=== PATIENT | male | born 1975 | race Caucasian/White ===

== ENCOUNTER 2021-05-03 11:00 | Outpatient (REF) | payer OTHER, SELFPAY ==
[2021-05-03 14:43] LABS: MANUAL DIFF FLAG NO
[2021-05-03 14:48] LABS: Basophils Absolute Auto 0.1 X10*3/uL (0.0-0.2); Eosinophils Absolute Auto 0.5 X10*3/uL (0.0-0.4); Eosinophils Percent Auto 4.2 % (0-4); Hematocrit 43.6 % (42-52); Hemoglobin 14.7 g/dl (14.0-18.0); Imm Gran Abs Auto 0.03 X10*3/uL (0.00-0.03); Imm Gran Pct Auto 0.2 % (0.0-0.4); Lymphocytes Absolute Auto 3.6 X10*3/uL (1.2-4.9); Lymphocytes Percent Auto 28.1 % (20-40); Mean Corpuscular HGB Conc 33.7 g/dl (31.0-36.0); Mean Corpuscular Hemoglobin 31.3 pg (27.0-33.0); Mean Platelet Volume 10.4 fL (9.4-12.4); Monocytes Absolute Auto 1.1 X10*3/uL (0.1-1.2); Monocytes Percent Auto 8.3 % (2-11); Neutrophils Absolute Auto 7.5 X10*3/uL (2.0-8.3); Neutrophils Percent Auto 58.2 % (45-73); Platelet Count 338 X10*3/uL (160-400); Red Blood Count 4.69 X10*6/uL (4.60-5.80); White Blood Count 12.8 X10*3/uL (4.8-10.8)
[2021-05-03 15:42] LABS: Glucose Urine UA NEG (NEG); Leukocyte Esterase Urine NEG (NEG); Nitrite Urine NEG (NEG); Urine Blood NEG (NEG); Urine Ketones NEG (NEG); Urine Protein NEG (NEG-TRACE)
[2021-05-03 15:43] LABS: Appearance Urine CLEAR; Color Urine YELLOW
[2021-05-03 15:50] LABS: Alanine Aminotransferase 17 U/L (0-40); Albumin Level 4.3 g/dL (3.5-5.0); Alkaline Phosphatase 63 U/L (39-117); Anion Gap 16 (12-20); Aspartate Amino Transferase 29 U/L (5-37); Bilirubin Total 0.8 mg/dL (0.0-1.0); Blood Urea Nitrogen 19 mg/dL (9-16); Calcium 9.5 mg/dL (8.4-10.2); Carbon Dioxide 23 mmol/L (22-29); Chloride 105 mmol/L (96-108); Cholesterol 288 mg/dL; Estimated Glomerular Filt Rate > 60; Glucose Random 80 mg/dL (60-115); HDL Cholesterol 51 mg/dL; LDL Cholesterol Calculated 205 mg/dl; Potassium 4.4 mmol/L (3.3-5.1); Sodium 140 mmol/L (135-145); Total Protein 7.1 g/dL (6.5-8.0); Triglycerides 160 mg/dL
[2021-05-03 16:09] LABS: PSA,Total (Free>4and<10) 0.27 ng/mL (0.00-4.00)
== END 2021-05-03 11:01 | disposition home or self-care (01) ==
LOC: HO.LNP 11:00
PROVIDERS: PCP Internal Medicine; Visit Provider Internal Medicine
DX: Z00.00 Encounter for general adult medical examination without abnormal findings (principal); Z12.5 Encounter for screening for malignant neoplasm of prostate; K62.5 Hemorrhage of anus and rectum; E78.00 Pure hypercholesterolemia, unspecified; F14.11 Cocaine abuse, in remission
CPT/HCPCS: 80053; 80061; 81003; 84153; 85025

== ENCOUNTER 2021-08-15 10:10 | Outpatient (REF) | payer OTHER, SELFPAY ==
[2021-08-15 11:30] LABS: Alanine Aminotransferase 12 U/L (0-40); Albumin Level 4.2 g/dL (3.5-5.0); Alkaline Phosphatase 68 U/L (39-117); Aspartate Amino Transferase 22 U/L (5-37); Bilirubin Direct 0.2 mg/dL (0.0-0.5); Bilirubin Total 0.5 mg/dL (0.0-1.0); Cholesterol 194 mg/dL; HDL Cholesterol 52 mg/dL; LDL Cholesterol Calculated 115 mg/dl; Total Protein 6.9 g/dL (6.5-8.0); Triglycerides 137 mg/dL
[2021-08-15 12:14] LABS: Reflex LDLD? No
== END 2021-08-15 10:11 | disposition home or self-care (01) ==
LOC: HO.LNP 10:10
PROVIDERS: Visit Provider Internal Medicine
DX: E78.00 Pure hypercholesterolemia, unspecified (principal)
CPT/HCPCS: 80061; 80076

== ENCOUNTER → 2021-09-27 10:23 | Outpatient (BNVA) | payer BC, OTHER, SELFPAY | PROVIDERS: PCP Internal Medicine; Visit Provider Nurse Practitioner | DX: Z01.818 Encounter for other preprocedural examination (principal); K64.9 Unspecified hemorrhoids | CPT/HCPCS: 99202 ==

== ENCOUNTER 2021-12-24 12:36 | Day surgery (SDC) | payer BC, OTHER, SELFPAY ==
[2021-12-19 09:50] VITALS: BMI 27.8
--- NOTE | 2021-12-23 11:05 | HO.ANESPROP2 ---
Documented by User: Richa Gonzalez NP 01/07/22 14:33 HPI - Anesthesia Eval Consult details Narrative: 46yo M for Colonoscopy [facility] Active Problems Active Problems: All Active Problems (Updated 09/27/21 @ 18:28 by MAYCOL Pandey) Smoker (Acute) High cholesterol (Acute) History of alcohol abuse (Acute) Colon cancer screening (Acute) Hemorrhoids (Acute) Past Medical History Medical History High cholesterol History of alcohol abuse Smoker Social History Social History Patient Tobacco Use Status: Current everyday Tobacco user Cigarettes Per Day: 10 Meds Allergies Allergy/AdvReac Type Severity Reaction Status Date / Time bee pollen [BEE STINGS] Allergy Unknown HIVES Verified 09/27/21 10:44 Home Medications Medication Instructions Recorded Confirmed Last Taken Type atorvastatin 20 mg tablet 20 mg PO DAILY 09/27/21 Unknown History disulfiram 250 mg tablet 250 mg PO DAILY 09/27/21 Unknown History Exam Exam Date and Time: December 23, 2021 1105 Height,Weight and Vital Signs: Height 5 ft 8.5 in Weight 84.368 kg Pertinent Lab Results Pertinent Lab Results: Laboratory Tests 05/03/21 05/03/21 08/15/21 07:45 07:45 08:00 WBC 12.8 H Hgb 14.7 Hct 43.6 Plt Count 338 Sodium 140 Potassium 4.4 Chloride 105 Carbon Dioxide 23 BUN 19 H Creatinine 1.07 Calcium 9.5 Total Bilirubin 0.5 Direct Bilirubin 0.2 AST 22 ALT 12 Alkaline Phosphatase 68 Total Protein 6.9 Albumin 4.2 Assessment and Plan Assessment Anesthesia Assessment: Chart Reviewed Documented by User: Hitesh Franks MD 03/12/22 16:22 [facility] Past Medical History Medical History High cholesterol History of alcohol abuse Smoker Family History Family history of problems with anesthesia: No Surgical History History of Problems with Anesthesia: No Social History Social History Patient Tobacco Use Status: Current everyday Tobacco user Cigarettes Per Day: 10 Meds Allergies Allergy/AdvReac Type Severity Reaction Status Date / Time bee pollen [BEE STINGS] Allergy Unknown HIVES Verified 09/27/21 10:44 Home Medications Medication Instructions Recorded Confirmed Last Taken Type atorvastatin 20 mg tablet 20 mg PO DAILY 09/27/21 Unknown History disulfiram 250 mg tablet 250 mg PO DAILY 09/27/21 Unknown History Exam Airway Mallampati Class: II TM Dist: >3cm Neck ROM: Full Loose/Missing/Broken Teeth: Yes (Rowena ) Heart: S1,S2 Lungs: b/l breath sounds Assessment and Plan Assessment Anesthesia Assessment: Anesthesia Plan Discussed Final Anesthetic Review Family History of Problems with Anesthesia: No History of Problems with Anesthesia: No NPO: Yes ASA Class: II Final Preanesthetic Review: Meds/Allgs Chart Reviewed, Consent Obtained/Reviewed and Anes Risks/Benef Reviewed Patient Risk: Intermediate Procedure Risk: Intermediate Anesthetic Plan Anesthetic Plan: MAC: Disposition: Standard PACU
--- NOTE | 2021-12-24 12:50 | MHC.SHP ---
Pre-Procedural Eval Section A Date of Service: 12/24/21 The patient is an INPATIENT: No The History & Physical has been completed within 30 days and I have reviewed it.: No Section B Chief Complaint: screening Details of Present Illness: Colon cancer screening, rectal bleeding Relevant Family History (Specify if Yes): No Relevant Social History: Tobacco Use Present Medications: see Short Stay Collaborative assessment Medical History: Significant History (High cholesterol, hx of rectal bleeding) History of Previous Operations: No relevant previous surgery Allergies: Allergies Allergy/AdvReac Type Severity Reaction Status Date / Time bee pollen [BEE STINGS] Allergy Unknown HIVES Verified 09/27/21 10:44 Review of Systems Sugical H&P ROS: Negative: Constitution, Cardiovascular and Respiratory and Yes, Specify: Gastrointestinal (rectal bleeding) Exam Surgical H&P Exam: Normal: Heart, Normal: Lungs, Normal: Extremities and Normal: Abdomen Plan Diagnosis/Plan: Unchanged I have reviewed the history and physical and performed a pertinent physical examination on my patient. No changes have occurred unless specified.
--- NOTE | 2021-12-24 12:52 | P.BOP_ITS ---
Brief Operative Note Date of Service: 12/24/21 Pre-op diagnosis: Colon cancer screening, rectal bleeding Post-op diagnosis: other (Diverticulosis, hemorrhoids) Procedure: COLONOSCOPY TILL CECUM Consent: Indications for the procedure and potential complications of bleeding, perforation, reaction to medications and missed diagnosis were discussed with the patient and informed consent was obtained. Instrument: Olympus PCF H 190 L variable stiffness pediatric colonoscope Monitoring: Vital signs and clinical assessment, intermittent blood pressure monitoring, continuous EKG monitoring, Pulse oximetry and Carbon Dioxide monitoring were done throughout the procedure. Colon withdrawl time was 25 minutes. Procedure: The patient was placed in the left lateral decubitis position and pre-procedure medications were administered. After a digital rectal examination of the ano-rectum, the video colonoscope was inserted into the rectum and advanced through the colon to the cecum. The colonoscope was slowly withdrawn in a retrograde panoramic fashion and the colon mucosa was carefully examined including a retroflexed view of the rectum. Findings and interventions are described below. Procedure Difficulty: Without difficulty Findings: Terminal Ileum: Not evaluated Cecum: Normal Ascending Colon: Normal Transverse Colon: Normal Descending Colon: Normal Sigmoid Colon: Moderate diverticulosis Rectum: Normal Ano-rectum: Moderate internal hemorrhoids - likely source for rectal bleeding. Colon preparation: Good after copious irrigation and fair in some areas of the colon due to undigested vegetable matter. Impression and Post Procedure Diagnosis: Colonoscopy Findings: No polyps were detected Moderate diverticulosis seen in the sigmoid colon Moderate hemorrhoids on retroflexed exam - likely source for rectal bleeding. Plan: Start Hydrocortisone cream and psyllium husk for hemorrhoids Patient has an appointment on 01/07/22 in the GI Clinic with María Grove FNP-BC. Repeat Colonoscopy in 5 years due to fair prep in some areas of the colon. Above findings were reviewed with the patient and Hemorrhoids and diverticulosis handouts were given in the discharge area Surgeon: Herminia Quintero MD Anesthesia: MAC (Dr Franks) Was an Machine Records Units Supervisor used for this Procedure?: Yes Machine Records Units Supervisor: Naomi Mendez Estimated blood loss (mL): 0 Pathology: none sent Condition: stable Disposition: PACU
[2021-12-24 12:58] VITALS: BP 113/68; PULSE 56; RESP 16; TEMP 36.6; O2SAT 100; BMI 28.4
--- NOTE | 2021-12-24 13:04 | W.PM.OPN ---
Operative Note Operative Note Date of Service: 12/24/21 Narrative: Pre-op diagnosis:?Colon cancer screening, rectal bleeding Post-op diagnosis:?other (Diverticulosis, hemorrhoids) Procedure:? COLONOSCOPY TILL CECUM Consent: Indications for the procedure and potential complications of bleeding, perforation, reaction to medications and missed diagnosis were discussed with the patient and informed consent was obtained. Instrument: Olympus PCF H 190 L variable stiffness pediatric colonoscope Monitoring: Vital signs and clinical assessment, intermittent blood pressure monitoring, continuous EKG monitoring, Pulse oximetry and Carbon Dioxide monitoring were done throughout the procedure. Colon withdrawl time was 25 minutes. Procedure: The patient was placed in the left lateral decubitis position and pre-procedure medications were administered. After a digital rectal examination of the ano-rectum, the video colonoscope was inserted into the rectum and advanced through the colon to the cecum. The colonoscope was slowly withdrawn in a retrograde panoramic fashion and the colon mucosa was carefully examined including a retroflexed view of the rectum. Findings and interventions are described below. Procedure Difficulty: Without difficulty Findings: Terminal Ileum: Not evaluated Cecum:? Normal Ascending Colon:? Normal Transverse Colon:? Normal Descending Colon:? Normal Sigmoid Colon:? Moderate diverticulosis Rectum:? Normal Ano-rectum:? Moderate internal hemorrhoids - likely source for rectal bleeding. Colon preparation:? Good after copious irrigation and fair in some areas of the colon due to undigested vegetable matter. Impression and Post Procedure Diagnosis: Colonoscopy Findings: No polyps were detected Moderate diverticulosis seen in the sigmoid colon Moderate hemorrhoids on retroflexed exam - likely source for rectal bleeding. Plan: Start Hydrocortisone cream and psyllium husk for hemorrhoids Patient has an appointment on 01/07/22 in the GI Clinic with ? María Grove, [employer]. Repeat Colonoscopy in 5 years due to fair prep in some areas of the colon. Above findings were reviewed with the patient and Hemorrhoids and diverticulosis handouts were given in the discharge area Surgeon:?Herminia Quintero MD Anesthesia:?MAC (Dr Franks) Was an Scouring Machine Tender used for this Procedure?:?Yes Scouring Machine Tender:?Naomi Mendez Estimated blood loss (mL):?0 Pathology:?none sent Condition:?stable Disposition:?PACU
[2021-12-24] MEDS: Lactated Ringers 1,000 ML 100 ML IVCONT (13:07)
[2021-12-24 14:56] VITALS: BP 109/68; PULSE 63; RESP 19; TEMP 36.6; O2SAT 100
[2021-12-24 15:11] VITALS: BP 118/77; PULSE 55; RESP 16; TEMP 36.6; O2SAT 100
== END 2021-12-24 15:32 | disposition home or self-care (01) ==
PROVIDERS: PCP Internal Medicine; Visit Provider Internal Medicine Gastroenterology
PROC: 0DJD8ZZ Inspection of Lower Intestinal Tract, Via Natural or Artificial Opening Endoscopic (ICD-10-PCS; CPT 45378; principal; 2021-12-24 13:00)
DX: Z12.11 Encounter for screening for malignant neoplasm of colon (principal); K57.30 Diverticulosis of large intestine without perforation or abscess without bleeding; K64.8 Other hemorrhoids; E78.00 Pure hypercholesterolemia, unspecified; Z79.899 Other long term (current) drug therapy; F17.210 Nicotine dependence, cigarettes, uncomplicated
CPT/HCPCS: 45378

== ENCOUNTER 2022-02-10 10:54 | Outpatient (REF) | payer BC, OTHER, SELFPAY ==
[2022-02-10 10:56] LABS: MANUAL DIFF FLAG NO
[2022-02-10 11:01] LABS: Appearance Urine CLEAR; Color Urine YELLOW; Glucose Urine UA NEG (NEG); Leukocyte Esterase Urine NEG (NEG); Nitrite Urine NEG (NEG); PH 5.5 (5.0-8.0); Specific Gravity - Urine 1.025 (1.005-1.025); Urine Blood NEG (NEG); Urine Ketones NEG (NEG); Urine Protein NEG (NEG-TRACE)
[2022-02-10 11:02] LABS: Basophils Absolute Auto 0.1 X10*3/uL (0.0-0.2); Basophils Percent Auto 0.9 % (0-2); Eosinophils Absolute Auto 0.5 X10*3/uL (0.0-0.4); Eosinophils Percent Auto 4.1 % (0-4); Hematocrit 45.1 % (42.0-52.0); Hemoglobin 14.7 g/dl (14.0-18.0); Imm Gran Abs Auto 0.03 X10*3/uL (0.00-0.03); Imm Gran Pct Auto 0.2 % (0.0-0.4); Lymphocytes Absolute Auto 3.9 X10*3/uL (1.2-4.9); Lymphocytes Percent Auto 30.6 % (20-40); Mean Corpuscular HGB Conc 32.6 g/dl (31.0-36.0); Mean Corpuscular Hemoglobin 29.9 pg (27.0-33.0); Mean Corpuscular Volume 91.7 fL (80.0-98.0); Mean Platelet Volume 10.6 fL (9.4-12.4); Monocytes Absolute Auto 0.9 X10*3/uL (0.1-1.2); Monocytes Percent Auto 6.9 % (2-11); Neutrophils Absolute Auto 7.3 x10*3/uL (2.0-8.3); Neutrophils Percent Auto 57.3 % (45-73); Platelet Count 362 X10*3/uL (160-400); Red Blood Count 4.92 X10*6/uL (4.60-5.80); Red Cell Distribution Width 13.2 % (11.0-16.0); White Blood Count 12.7 X10*3/uL (4.8-10.8)
[2022-02-10 11:19] LABS: Alanine Aminotransferase 11 U/L (0-40); Albumin Level 4.1 g/dL (3.5-5.0); Alkaline Phosphatase 52 U/L (39-117); Anion Gap 11 (12-20); Aspartate Amino Transferase 20 U/L (5-37); Bilirubin Total 0.3 mg/dL (0.0-1.0); Blood Urea Nitrogen 16 mg/dL (9-16); Calcium 9.3 mg/dL (8.4-10.2); Carbon Dioxide 26 mmol/L (22-29); Chloride 107 mmol/L (96-108); Cholesterol 272 mg/dL; Estimated Glomerular Filt Rate > 60; Glucose Fasting 96 mg/dL (60-99); HDL Cholesterol 58 mg/dL; LDL Cholesterol Calculated 179 mg/dl; Potassium 4.6 mmol/L (3.3-5.1); Sodium 139 mmol/L (135-145); Total Protein 7.2 g/dL (6.5-8.0); Triglycerides 179 mg/dL
[2022-02-10 11:28] LABS: PSA,Total (Free>4and<10) 0.42 ng/mL (0.00-4.00)
== END 2022-02-10 10:55 | disposition home or self-care (01) ==
LOC: HO.LNP 10:54
PROVIDERS: PCP Internal Medicine; Visit Provider Internal Medicine
DX: Z00.00 Encounter for general adult medical examination without abnormal findings (principal); Z12.5 Encounter for screening for malignant neoplasm of prostate; E78.00 Pure hypercholesterolemia, unspecified
CPT/HCPCS: 80053; 80061; 81003; 84153; 85025

== ENCOUNTER 2023-03-24 11:11 | Outpatient (REF) | payer BC, OTHER, SELFPAY ==
[2023-03-24 11:13] LABS: MANUAL DIFF FLAG NO
[2023-03-24 12:03] LABS: Appearance Urine Clear; Color Urine Yellow; Glucose Urine UA Negative (Negative); Leukocyte Esterase Urine Negative (Negative); Nitrite Urine Negative (Negative); Specific Gravity - Urine 1.015 (1.005-1.025); Urine Blood Negative (Negative); Urine Ketones Negative (Negative); Urine Protein Negative (Neg-Trace)
[2023-03-24 12:05] LABS: Bacteria Urine None Seen (None Seen); Hyaline Casts Urine 0-2 /LPF (0-2); RBC Urine 0-2 /HPF (0-2); Squamous Epithelial Cell Urine 0-2 /HPF (0-2); WBC Urine 0-5 /HPF (0-5)
[2023-03-24 12:08] LABS: Basophils Absolute Auto 0.2 X10*3/uL (0.0-0.2); Basophils Percent Auto 0.9 % (0-2); Eosinophils Absolute Auto 0.5 X10*3/uL (0.0-0.4); Eosinophils Percent Auto 3.4 % (0-4); Hematocrit 43.1 % (42.0-52.0); Hemoglobin 14.4 g/dl (14.0-18.0); Imm Gran Abs Auto 0.07 X10*3/uL (0.00-0.03); Imm Gran Pct Auto 0.4 % (0.0-0.4); Lymphocytes Absolute Auto 4.1 X10*3/uL (1.2-4.9); Lymphocytes Percent Auto 25.3 % (20-40); Mean Corpuscular HGB Conc 33.4 g/dl (31.0-36.0); Mean Corpuscular Hemoglobin 31.4 pg (27.0-33.0); Mean Corpuscular Volume 93.9 fL (80.0-98.0); Mean Platelet Volume 10.6 fL (9.4-12.4); Monocytes Absolute Auto 1.1 X10*3/uL (0.1-1.2); Monocytes Percent Auto 6.7 % (2-11); Neutrophils Absolute Auto 10.2 x10*3/uL (2.0-8.3); Neutrophils Percent Auto 63.3 % (45-73); Platelet Count 355 X10*3/uL (160-400); Red Blood Count 4.59 X10*6/uL (4.60-5.80); Red Cell Distribution Width 13.6 % (11.0-16.0); White Blood Count 16.1 X10*3/uL (4.8-10.8)
[2023-03-24 13:01] LABS: Alanine Aminotransferase 12 U/L (0-40); Albumin Level 4.2 g/dL (3.5-5.0); Alkaline Phosphatase 53 U/L (39-117); Anion Gap 14 (12-20); Aspartate Amino Transferase 19 U/L (5-37); Bilirubin Total 0.5 mg/dL (0.0-1.0); Blood Urea Nitrogen 15 mg/dL (9-16); Carbon Dioxide 24 mmol/L (22-29); Chloride 107 mmol/L (96-108); Cholesterol 278 mg/dL; Estimated Glomerular Filt Rate > 60; Glucose Fasting 96 mg/dL (60-99); HDL Cholesterol 68 mg/dL; LDL Cholesterol Calculated 193 mg/dl; PSA,Total (Free>4and<10) 0.42 ng/mL (0.00-4.00); Potassium 4.2 mmol/L (3.3-5.1); Sodium 141 mmol/L (135-145); Total Protein 6.9 g/dL (6.5-8.0); Triglycerides 89 mg/dL
== END 2023-03-24 11:12 | disposition home or self-care (01) ==
LOC: HO.LNP 11:11
PROVIDERS: Visit Provider Internal Medicine
DX: Z00.00 Encounter for general adult medical examination without abnormal findings (principal); Z12.5 Encounter for screening for malignant neoplasm of prostate; E78.00 Pure hypercholesterolemia, unspecified
CPT/HCPCS: 80053; 80061; 81001; 84153; 85025

== ENCOUNTER 2023-03-31 10:44 | Outpatient (REF) | payer BC, OTHER, SELFPAY ==
[2023-03-31 11:41] LABS: MANUAL DIFF FLAG NO
[2023-03-31 12:01] LABS: Basophils Absolute Auto 0.1 X10*3/uL (0.0-0.2); Eosinophils Absolute Auto 0.5 X10*3/uL (0.0-0.4); Eosinophils Percent Auto 4.2 % (0-4); Hematocrit 46.6 % (42.0-52.0); Imm Gran Abs Auto 0.06 X10*3/uL (0.00-0.03); Imm Gran Pct Auto 0.5 % (0.0-0.4); Lymphocytes Absolute Auto 3.2 X10*3/uL (1.2-4.9); Lymphocytes Percent Auto 26.1 % (20-40); Mean Corpuscular HGB Conc 34.3 g/dl (31.0-36.0); Mean Corpuscular Hemoglobin 31.6 pg (27.0-33.0); Mean Corpuscular Volume 91.9 fL (80.0-98.0); Mean Platelet Volume 10.5 fL (9.4-12.4); Monocytes Absolute Auto 0.9 X10*3/uL (0.1-1.2); Monocytes Percent Auto 7.4 % (2-11); Neutrophils Absolute Auto 7.5 x10*3/uL (2.0-8.3); Neutrophils Percent Auto 60.8 % (45-73); Platelet Count 345 X10*3/uL (160-400); Red Blood Count 5.07 X10*6/uL (4.60-5.80); Red Cell Distribution Width 13.3 % (11.0-16.0); White Blood Count 12.4 X10*3/uL (4.8-10.8)
== END 2023-03-31 10:45 | disposition home or self-care (01) ==
LOC: HO.LNP 10:44
PROVIDERS: Visit Provider Internal Medicine
DX: D72.829 Elevated white blood cell count, unspecified (principal)
CPT/HCPCS: 85025

== ENCOUNTER 2023-07-27 08:10 | Outpatient (REF) | payer BC, OTHER, SELFPAY ==
--- NOTE | ~2023-07-27 | XR_ITS ---
EXAMINATION: XR SHOULDER, RIGHT CLINICAL INFORMATION: Right shoulder pain COMPARISON: None available. TECHNIQUE: Three views of the right shoulder. FINDINGS: Advanced degenerative changes in the acromioclavicular joint with joint space narrowing and hypertrophic change. Glenohumeral alignment preserved. No abnormal soft tissue calcifications identified adjacent to the humeral head. XR/XR shoulder RT min 2V IMPRESSION: Advanced degenerative changes in the acromioclavicular joint. Additional imaging with CT scan or MRI should be considered for better visualization as these modalities are much more sensitive for detection of fracture or other underlying pathology.
== END 2023-07-27 08:11 | disposition home or self-care (01) ==
LOC: HO.HOSX 08:10
PROVIDERS: Visit Provider Orthopaedic Surgery
DX: M25.511 Pain in right shoulder (principal); M24.811 Other specific joint derangements of right shoulder, not elsewhere classified
CPT/HCPCS: 20610; 73030; 99202; J1100

== ENCOUNTER 2023-07-27 10:11 | Outpatient (AMB) | payer BC, OTHER, SELFPAY ==
--- NOTE | 2023-07-27 10:13 | A.OFFVIS_ITS ---
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 This is Workmans Comp injury, this was not a direct injury but he feels that his pain is secondary to repetitive motion. He has pain in the shoulder all the time, worse with activity. His job requires frequent lifting and reaching. He remains at work. 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 He feels this is secondary to his work activities and feels this is a workers comp injury. 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 He complains of pain in his shoulder constantly , and worse with activity. He says his pain worsens after a day at work, when he is winding down in the evening & at night the pain is severe and he has numbness, tingling, and throbbing radiating down his shoulder into his hand. He says his job requires frequent & repetitive motions which he finds very painful. He says his pain worsened ~3 months ago. He says he feels helpless and his symptoms prevent him from playing sports with his children. He says he has some paperwork to fax over to the clinic in regards to his claim. He used to be a member of the [employer] Medical History High cholesterol History of alcohol abuse Smoker Surgical History H/O colonoscopy Family History Sister Epilepsy Social History (Updated 07/27/23 @ 10:23 by Kelsey Singleton [facility]) Alcohol intake: former Patient Tobacco Use Status: Current everyday Tobacco user Cigarettes Per Day: 10 Substance Use Type: Marijuana Current occupational status: employed Current occupation: [employer] Review of Systems Const All systems reviewed & are unremarkable except as noted in HPI and below Physical Exam Vital Signs: BMI result Body Mass Index 27.7 Const General: no acute distress, alert and awake Orientation/consciousness: patient oriented x3 HEENT Head: Yes normocephalic and Yes atraumatic Eyes EOM: EOMs intact bilaterally Resp Effort & Inspection: normal respiratory effort and able to speak in complete sentences Cardio Jugular venous distension: no JVD Skin General skin exam: turgor normal Rashes: no rashes Neuro General: patient oriented x3 Extrem Other: Right Shoulder: 45/90/130/L5 + Lake's - empty can + H&N Psych Appearance: grossly normal Affect: normal affect Attitude: cooperative Results Reviewed Results Reviewed: 07/27/23 10:38 BUPivacaine MPF 0.25 % [Sensorcaine-MPF 0.25% 10 ML] 10 ml .ROUTE .STK-MED ONE Lidocaine HCl 2 % MPF [Xylocaine 2 % MPF] 5 ml .ROUTE .STK-MED ONE dexAMETHasone sod phosphate [Decadron] 4 mg .ROUTE .STK-MED ONE I personally reviewed relevant radiographs. Nl gh joint. ACJ OA Assessment & Plan Assessment & Plan (1) Internal derangement of right shoulder: Code(s): M24.811 - Other specific joint derangements of right shoulder, not elsewhere classified Plan: This is a 47 year old man with right shoulder pain, X3 months. His radiographs are unremarkable. He has pain with daily repetitive activities, which worsens when he is at rest following activity. He is claiming this as workers comp due to repetitive painful motions at work. I discussed his diagnosis and treatment options. I recommend NSAIDs, PT, and activity modification. I injected his right shoulder today, which he tolerated well, ordered PT, and he was given a note for work restricting him to no overhead work or lifting >20lbs. He will follow up in 6 weeks to discuss his RTW status. Orders: Orders XR shoulder RT min 2V Today M25.519 - Pain in unspecified shoulder Coding Level of Care Code New Pt Level 4 (98764) Diagnoses Internal derangement of right shoulder M24.811
[2023-07-27 10:19] VITALS: BMI 27.7
== END 2023-07-27 10:57 | disposition home or self-care (01) ==
PROVIDERS: PCP Internal Medicine; Visit Provider Orthopaedic Surgery
DX: M24.811 Other specific joint derangements of right shoulder, not elsewhere classified (principal); M19.011 Primary osteoarthritis, right shoulder
CPT/HCPCS: 20610; 99204

== ENCOUNTER 2024-03-28 11:07 | Outpatient (REF) | payer BC, SELFPAY ==
[2024-03-28 11:12] LABS: MANUAL DIFF FLAG NO
[2024-03-28 11:50] LABS: Basophils Absolute Auto 0.2 X10*3/uL (0.0-0.2); Basophils Percent Auto 1.2 % (0-2); Eosinophils Absolute Auto 0.4 X10*3/uL (0.0-0.4); Eosinophils Percent Auto 3.1 % (0-4); Hematocrit 42.6 % (42.0-52.0); Hemoglobin 14.4 g/dl (14.0-18.0); Imm Gran Abs Auto 0.05 X10*3/uL (0.00-0.03); Imm Gran Pct Auto 0.4 % (0.0-0.4); Lymphocytes Absolute Auto 2.9 X10*3/uL (1.2-4.9); Lymphocytes Percent Auto 22.6 % (20-40); Mean Corpuscular HGB Conc 33.8 g/dl (31.0-36.0); Mean Corpuscular Hemoglobin 31.8 pg (27.0-33.0); Mean Platelet Volume 10.5 fL (9.4-12.4); Monocytes Absolute Auto 0.9 X10*3/uL (0.1-1.2); Monocytes Percent Auto 6.8 % (2-11); Neutrophils Absolute Auto 8.6 x10*3/uL (2.0-8.3); Neutrophils Percent Auto 65.9 % (45-73); Platelet Count 355 X10*3/uL (160-400); Red Blood Count 4.53 X10*6/uL (4.60-5.80)
[2024-03-28 12:16] LABS: Appearance Urine Clear; Color Urine Yellow; Glucose Urine UA Negative (Negative); Leukocyte Esterase Urine Negative (Negative); Nitrite Urine Negative (Negative); PH 5.5 (5.0-9.0); Urine Blood Negative (Negative); Urine Ketones Negative (Negative); Urine Protein Negative (Neg-Trace)
[2024-03-28 12:27] LABS: Bacteria Urine None Seen (None Seen); Hyaline Casts Urine 0-2 /LPF (0-2); RBC Urine 0-2 /HPF (0-2); Squamous Epithelial Cell Urine 0-2 /HPF (0-2); WBC Urine 0-5 /HPF (0-5)
[2024-03-28 13:16] LABS: Alanine Aminotransferase 15 U/L (0-40); Albumin Level 4.3 g/dL (3.5-5.0); Alkaline Phosphatase 55 U/L (39-117); Anion Gap 11 (12-20); Aspartate Amino Transferase 25 U/L (5-37); Bilirubin Total 0.7 mg/dL (0.0-1.0); Blood Urea Nitrogen 15 mg/dL (9-16); Calcium 9.5 mg/dL (8.4-10.2); Carbon Dioxide 28 mmol/L (22-29); Chloride 104 mmol/L (96-108); Cholesterol 246 mg/dL (<200); Estimated Glomerular Filt Rate > 60; Glucose Fasting 88 mg/dL (60-99); HDL Cholesterol 64 mg/dL (>40); LDL Cholesterol Calculated 145 mg/dL (<100); Sodium 139 mmol/L (135-145); Total Protein 7.5 g/dL (6.5-8.0); Triglycerides 188 mg/dL (<150)
[2024-03-28 13:34] LABS: PSA,Total (Free>4and<10) 0.42 ng/mL (0.00-4.00)
== END 2024-03-28 11:08 | disposition home or self-care (01) ==
LOC: HO.LNP 11:07
PROVIDERS: Visit Provider Internal Medicine
DX: E78.00 Pure hypercholesterolemia, unspecified (principal); D72.829 Elevated white blood cell count, unspecified; Z12.5 Encounter for screening for malignant neoplasm of prostate
CPT/HCPCS: 80053; 80061; 81001; 84153; 85025

== ENCOUNTER 2025-04-04 11:59 | Outpatient (REF) | payer BC, SELFPAY ==
[2025-04-04 12:03] LABS: MANUAL DIFF FLAG NO
[2025-04-04 12:08] LABS: Appearance Urine Clear; Basophils Absolute Auto 0.1 X10*3/uL (0.0-0.2); Color Urine Dark Yellow; Eosinophils Absolute Auto 0.3 X10*3/uL (0.0-0.4); Eosinophils Percent Auto 2.2 % (0-4); Glucose Urine UA Negative (Negative); Hematocrit 41.3 % (42.0-52.0); Hemoglobin 14.5 g/dl (14.0-18.0); Imm Gran Abs Auto 0.05 X10*3/uL (0.00-0.03); Imm Gran Pct Auto 0.4 % (0.0-0.4); Leukocyte Esterase Urine Negative (Negative); Lymphocytes Absolute Auto 2.3 X10*3/uL (1.2-4.9); Lymphocytes Percent Auto 16.8 % (20-40); Mean Corpuscular HGB Conc 35.1 g/dl (31.0-36.0); Mean Corpuscular Hemoglobin 30.8 pg (27.0-33.0); Mean Corpuscular Volume 87.7 fL (80.0-98.0); Mean Platelet Volume 9.8 fL (9.4-12.4); Monocytes Absolute Auto 0.8 X10*3/uL (0.1-1.2); Monocytes Percent Auto 6.2 % (2-11); Neutrophils Absolute Auto 9.8 x10*3/uL (2.0-8.3); Neutrophils Percent Auto 73.4 % (45-73); Nitrite Urine Negative (Negative); PH 5.5 (5.0-9.0); Platelet Count 361 X10*3/uL (160-400); Red Blood Count 4.71 X10*6/uL (4.60-5.80); Red Cell Distribution Width 13.2 % (11.0-16.0); Specific Gravity - Urine >= 1.030 (1.005-1.025); Urine Blood Negative (Negative); Urine Ketones Trace mg/dL (Negative); Urine Protein Trace mg/dL (Neg-Trace); White Blood Count 13.4 X10*3/uL (4.8-10.8)
[2025-04-04 13:11] LABS: PSA,Total (Free>4and<10) 0.38 ng/mL (0.00-4.00)
[2025-04-04 13:16] LABS: Alanine Aminotransferase 15 U/L (0-40); Albumin Level 4.3 g/dL (3.5-5.0); Anion Gap 12 (12-20); Aspartate Amino Transferase 35 U/L (5-37); Bacteria Urine None Seen (None Seen); Bilirubin Total 0.3 mg/dL (0.0-1.0); Blood Urea Nitrogen 23 mg/dL (9-16); Carbon Dioxide 26 mmol/L (22-29); Chloride 107 mmol/L (96-108); Cholesterol 274 mg/dL (<200); Estimated Glomerular Filt Rate > 60; Glucose Fasting 88 mg/dL (60-99); HDL Cholesterol 63 mg/dL (>40); Hyaline Casts Urine 0-2 /LPF (0-2); LDL Cholesterol Calculated 192 mg/dL (<100); Potassium 3.7 mmol/L (3.3-5.1); RBC Urine 0-2 /HPF (0-2); Sodium 141 mmol/L (135-145); Squamous Epithelial Cell Urine 0-2 /HPF (0-2); Total Protein 7.4 g/dL (6.5-8.0); Triglycerides 98 mg/dL (<150); WBC Urine 0-5 /HPF (0-5)
--- OUTSIDE RECORDS SUMMARY | 2025-04-04 13:32 | XMS_ITS | Encounter Summary ---
Author Organization [facility] Address [address] [place] [address] Care Team Providers Care Digital Recruiter Name Role Phone Елена Sharp MD Primary Care Provider [phone] Encounter Details Date Type Department Care Team Description 03/16/2018 Orders Only Adult Medicine [facility] [address] [place] [phone] Adeola Diego NP Hyperlipidemia, unspecified hyperlipidemia type (Primary Dx) Social History Tobacco Use Types Packs/Day Years Used Date Smoking Tobacco: Every Day Cigarettes Smokeless Tobacco: Never Alcohol Use Standard Drinks/Week Comments Yes 0 (1 standard drink = 0.6 oz pure alcohol) 6-12 beers a few times a week, has had 2 DUIs Sex Assigned at Date Recorded Not on file documented as of this encounter Plan of Treatment Scheduled Orders Name Type Priority Associated Diagnoses Orde r Schedule LIPID PROFILE Lab Routine Hyperlipidemia, unspecified hyperlipidemia type Expected: 03/16/2018, Expires: 03/16/2019 documented as of this encounter Visit Diagnoses Diagnosis Hyperlipidemia, unspecified hyperlipidemia type- Primary documented in this encounter Care Teams Digital Recruiter Relationship Specialty Start Date End Date Елена Sharp MD [address] [place], [place] [phone] PCP - General Internal Medicine 02/15/18 documented as of this encounter
--- OUTSIDE RECORDS SUMMARY | 2025-04-04 13:32 | XMS_ITS | Encounter Summary ---
Author Organization [facility] Address [address] [place] [address] Care Team Providers Care Cellophane Press Operator Name Role Phone Елена Sharp MD Primary Care Provider [phone] Encounter Details Date Type Department Care Team Description 02/25/2018 Release of Information Medical Records [address] [place] [id number] Abstract, Provider Social History Tobacco Use Types Packs/Day Years Used Date Smoking Tobacco: Every Day Cigarettes Smokeless Tobacco: Never Alcohol Use Standard Drinks/Week Comments Yes 0 (1 standard drink = 0.6 oz pure alcohol) 6-12 beers a few times a week, has had 2 DUIs Sex Assigned at Date Recorded Not on file documented as of this encounter Plan of Treatment Not on file documented as of this encounter Visit Diagnoses Not on filedocumented in this encounter Care Teams Cellophane Press Operator Relationship Specialty Start Date End Date Елена Sharp MD [address] [place] [address] PCP - General Internal Medicine 02/15/18 documented as of this encounter
--- OUTSIDE RECORDS SUMMARY | 2025-04-04 13:32 | XMS_ITS ---
Author Organization Terrell Lorenz MD Address [address] [place], [place] [phone] Care Team Providers Care Tank Farm Gauger Name Role Phone Terrell Lorenz Primary Care [...] Date Provider Diagnosis Terrell Lorenz MD [address] [place], [place] [phone] 01/10/2025 Terrell Lorenz Plan Of Treatment Next Appt Details Provider Name:Terrell hunter, 04/07/2025 08:30:00 AM, [address] [facility], [address], [place], [place], [phone], Progress Notes * Amrik WILSONDOB: 5 (49 yo M)Acc No.[id number]:01/10/2025 Progress Notes Patient:Amrik SHIN Provider:?Terrell Lorenz MD :1975???Age:49 Y???Sex:Male Rupert e:01/10/2025 Address:[address] [place], [place] [phone] Subjective: * Chief Complaints: * ???1. Wants to be put on med for alcohol abuse. * Medical History:?Was in [facility] last year for black out from etoh. no alcohol in 6 months, Colonoscopy 2021 repeat in 5 years due to bad prep. * Medications:?Taking Levothyr oxine Sodium 50 MCG Tablet 1 tablet in [...] 1 MG Tablet as directed Orally * Allergies:?N.K.D.A. Objective: * Vitals:? Assessment: Plan: * Treatment: * * The named appointment provid er may or may not be the originator of this progress note, and it is not deemed complete until electronically signed by the appointment provider. Sign off status: Pending * Provider:?Terrell Lorenz MD Date:?0 01/10/2025 Generated for Jorge calixto/Isai/Astridsmitting on:?04/04/2025 01:32 PM EDT
--- OUTSIDE RECORDS SUMMARY | 2025-04-04 13:32 | XMS_ITS | Encounter Summary ---
Author Organization [facility] Address [address] [place] [address] Care Team Providers Care K 12 Principal Name Role Phone Елена Sharp MD Primary Care Provider [phone] Reason for Visit * Reason Onset Date Comments TEST RESULTS 03/19/2018 result notes Encounter Details Date Type Department Care Team Description 03/19/2018 Telephone Adult Medicine [address] [phone] Елена Sharp MD [address] [place] [phone] TEST RESULTS (result notes) Social History Tobacco Use Types Packs/Day Years Used Date Smoking Tobacco: Every Day Cigarettes Smokeless Tobacco: Never Alcohol Use Standard Drinks/Week Comments Yes 0 (1 standard drink = 0.6 oz pure alcohol) 6-12 beers a few times a week, has had 2 DUIs Sex Assigned at Date Recorded Not on file documented as of this encounter Miscellaneous Notes * Telephone Encounter - Deni Hancock M.A. - 03/19/2018 11:34 AM EDT Left message for patient to return call. * Telephone Encounter - Deni Hancock M.A. - 03/19/2018 11:34 AM EDT ----- Message from Adeola Diego NP sent at 03/16/2018 12:48 PM EDT ----- Please inform patient that his cholesterol did appear elevated. I have sent a letter with instructions regarding dieting. PLease advise him that I have ordered follow-up fasting labs for him to complete in 3 months after making dietary adjustments. documented in this encounter Plan of Treatment Not on file documented as of this encounter Visit Diagnoses Not on filedocumented in this encounter Care Teams K 12 Principal Relationship Specialty Start Date End Date Елена Sharp MD [address] [place] [phone] PCP - General Internal Medicine 02/15/18 documented as of this encounter
--- OUTSIDE RECORDS SUMMARY | 2025-04-04 13:32 | XMS_ITS ---
Author Organization Terrell Lorenz MD Address [address] [place], [place] [phone] Care Team Providers Care Batchmaker Name Role Phone Terrell Lorenz Primary Care Provider [phone] Results Component Value Reference Range Notes PSA,Total (Free>4and<10) (No t yet reviewed by provider) Interpretation: Performing Lab:[facility], [address] [place] [phone] Notes/Report: PSA,Total (Free>4and<10) 0.38 0.00-4.00 ng/mL A [...] Immunoassay (CMIA) UA ClnCatch+Micro w/rflx Cul t (Not yet reviewed by provider) Interpretation: Performing Lab:[facility], [address] [place] [phone] Notes/Report: Urine, Clean Catch Color Urine Dark Yellow Appearance Urine Clear PH 5.5 5.0-9.0 Glucose Urine UA Negative Negative mg/dL Urine Blood Negative Negative Specific [place] - Urine >= 1.030 1.005-1.025 Urine Protein Trace Neg-Trace mg/dL Urine Ketones Trace Negative mg/dL Nitrite Urine Negative Negative Leukocyte Esterase Urine Negative Negative RBC Urine 0-2 0-2 /HPF WBC Urine 0-5 0-5 /HPF Squamous Epithelial Cell Urine 0-2 0-2 /HPF Bacteria Urine None Seen None Seen Hyaline Casts Urine 0-2 0-2 /LPF Complete Blood Count Auto Di ff Reviewed date:04/04/2025 12:12:11 PM Interpretation: Performing Lab:[facility], [address] [place] [phone] Notes/Report: White Blood Count 13.4 4.8-10.8 X10*3/uL [...] X10*3/uL NRBC Abs Auto 0.000 0.0-0.012 X10*3/uL REASON FOR VISIT FASTING LABS Encounters Encounter Location Date Provider Diagnosis Terrell Lorenz MD [address] [place], [place] [phone] 04/04/2025 Terrell Lorenz Blood tests for routine [...] type (ICD-10 - D72.829) Plan Of Treatment Pending Test Test Name Order Date Comprehensive [place]. Panel Fast Lipid Panel 04/04/2025 PSA,Total (Free>4and<10) 04/04/2025 UA ClnCatch+Micro w/rflx Cult 04/04/2025 Next Appt Details Provider Name:Terrell Montalvo ier, 04/07/2025 08:30:00 AM, [address], [address], [place], [place], [phone], Progress Notes * Amrik WILSONDOB: [birth year] (49 yo M)Acc No.[id number]:04/04/2025 Progress Note Patient:?Amrik WILSON Provider:?Terrell Lorenz MD :1975???Age:49 Y???Sex:Male Rupert e:04/04/2025 Address:[address] [place] [phone] Subjective: * Chief Complaints: * ???1. FASTING LABS. * Medical History:? Objective: * Vitals:? Assessment: * Assessment: 1.?Blood tests for routine g eneral physical examination - Z00.00 (Primary)???2.?Pure hypercholesterolemia, unspecified - E78.00???3.?Leukocytosis, unspecified type - D72.829??? Plan: * Treatment: 2.?Pure hypercholesterolemia , unspecified?LAB: Comprehensive [place]. Panel Fast ?LAB: Lipid Panel ?LAB: PSA,Total (Free>4and<10) (Collection Date & Time - 04/04/2025 07:30 AM) ?LAB: UA ClnCatch+Micro w/rflx Cult (Collection Date & Time - 04/04/2025 07:30 AM) ?LAB: Complete Blood Count Auto Diff (Collection Date & Time - 04/04/2025 07:30 AM) 3.?Leukocytosis, unspecified type?LAB: Comprehensive [place]. Panel Fast ?LAB: Lipid Panel ?LAB: PSA,Total (Free>4and<10) (Collection Date & Time - 04/04/2025 07:30 AM) ?LAB: UA ClnCatch+Micro w/rflx Cult (Collection Date & Time - 04/04/2025 07:30 AM) ?LAB: Complete Blood Count Auto Diff (Collection Date & Time - 04/04/2025 07:30 AM) * Procedure Codes:?29802 VENIP UNCT, ROUTINE* * * The named appointment provid er may or may not be the originator of this progress note, and it is not deemed complete until electronically signed by the appointment provider. Sign off status: Pending * Provider:?Terrell Lorenz MD Date:?0 04/04/2025 Generated for Jorge calixto/Isai/Erica on:?04/04/2025 01:31 PM EDT
--- OUTSIDE RECORDS SUMMARY | 2025-04-04 13:32 | XMS_ITS ---
Author Name [facility] [place] Organization [facility] [place] Address [address] [place] [address] Care Team Providers Care Drying Supervisor Name Role Phone GUILLE ALONZO Primary Care Provider Unavailabl e Selected Encounter This section includes the information on record at [place] for the Encounter. Date/Time Encounter Type Encounter Description Reason Pro vider Source Jan 18, 2025 11:00 AM Outpatient Encounter SUBSTANCE USE DISORDER IND IHE Encounter Template Text not used by [place] Plan of Treatment: Future Appointments (+ 6 months) and Future Tests (+/- 45 days) The Plan of Treatment section includes future care activities for the patient from all [place] treatmentfacilities. This section includes future appointments and future orders which are active, pending or scheduled. Future Appointments This section includes appointments that were scheduled to occur 6 months from the date of the Encounter, up to a maximum of 20 appointments. The data comes from all [place] treatment facilities. Appointment Date/Time Appointment Type Appointme nt Facility Name Jan 23, 2025 09:00 AM AMBULATORY [place] [facility] [place] [facility] Jan 24, 2025 08:00 AM AM[place] [facility] [place] [facility] Jan 24, 2025 09:00 AM AM[place]UL[place]ORY [place] [facility] [place] [facility] Jan 24, 2025 10:00 AM AM[place]UL[place]ORY [place] [facility] [place] [facility] Jan 26, 2025 09:00 AM [facility] [place] [facility] Jan 26, 2025 11:00 AM AM[facility]UL[facility]ORY [place] [facility] [place] [facility] [place] [facility] Jan 27, 2025 09:00 AM AMBULATORY [place] [facility]ATRY [facility] [place] [facility] Mar 20, 2025 08:01 AM AMBULATORY - PS[facility]IATRY [facility] [place] [facility] Mar 20, 2025 09:00 AM AMBULATORY - [facility]IATRY [facility] [place] [facility] Mar 20, 2025 10:00 AM AMBULATORY - [facility]IATRY [place] [facility] [place] [facility] Mar 20, 2025 11:00 AM AMBULATORY - PS[facility]CHIATRY [facility] [place] [facility] Mar 23, 2025 09:00 AM AMBULATORY - PS[facility]IATRY [facility] [place] [facility] Mar 23, 2025 10:00 AM AMBULATORY - PS[facility]CHIATRY [facility] [place] [facility] Mar 23, 2025 11:00 AM AMBULATORY - PS[place]IATRY [place] [facility] [place] [facility] Mar 24, 2025 09:00 AM AMBULATORY - PS[facility]CHIATRY [facility] [place] [facility] Mar 27, 2025 09:00 AM AMBULATORY - PS[facility]CHIATRY [facility] [place] [facility] Mar 27, 2025 10:00 AM AMBULATORY - PS[facility]IATRY [facility] [place] [facility] Mar 27, 2025 11:00 AM AMBULATORY - PS[facility]CHIATRY [facility] [place] [facility] March 30, 2025 09:00 AM AMBULATORY - PS[facility]CHIATRY [facility] [place] [facility] March 30, 2025 10:00 AM AMBULATORY - PS[place]IATRY [facility] [place] [facility] Social History: Smoking Status (Most current) and Tobacco Use (All prior to encounter date) This section includes the most current, and the historical, smoking and tobacco- related health factors from the [place] facility where the Encounter took place. Current Smoking Status This section includes the most current smoking, or tobacco-related health factor, from the [place] facility where the Encounter took place. Date/Time Current Smoking Status Comment Facil ity Nov 17, 2024 04:59 PM VA-TOBACCO NEVER [facility] SED [facility] Tobacco Use History This section includes a history of the smoking, or tobacco-related health factors, that were collected on or before the date of the Encounter. The data comes from the [place] facility where the Encounter took place. Date/Time Smoking Status/Tobacco Use Comment F acility Nov 17, 2024 04:59 PM VA-TOBACCO NEVER U SED OTHER TYPE [place] [facility] [facility] Advance Directives: All historical and current Section Date Range: From patient's date of to the date document was created. This section includes ALL of a patient's completed or amended [place] Advance and Rescinded Directives. The entries below indicate that a directive exists for the patient, but an actual copy is not included with this document. The data comes from all [place] facilities. Date Advance Directives Provider Source Dec 13, 2024 ADVANCE DIRECTIVE [facility] Encounter Notes: All associated encounter notes This section contains the clinical notes associated to the Encounter. Date/Time Encounter Note(s) Provider Source Jan 18, 2025 11:18 AM CLERICAL NOTE: LOCAL TITLE: APPOINTMENT NO SHOW STANDARD TITLE: CLERICAL NOTE DATE OF NOTE: JAN 18, 2025@11:18 ENTRY DATE: JAN 18, 2025@11:18:19 AUTHOR: JETT TURNER EXP COSIGNER: URGENCY: STATUS: COMPLETED Patient Name: STIVEN TELLES Patient SSN: [id number] Date and time of Appointment No show : 01/18/25 11:00 PATIENT PHONE - PHONE NUMBER [CELLULAR] - Patient's medical record was reviewed. Follow-up actions were determined and initiated: Please check/complete as applies: [X]Telephoned Directly [ ]Re-scheduled for next available appt [ ]Sent a N0-show letter ( must call for appointment) [ ]Other (Emergent/Overbook, etc.): Additional Comments: Patient did not show for Individual appointment for IOP Screening/Triage appointment via [facility] on: Thursday, 18 JAN 2025 @ 1100 hours. Resent patient email link to todays [facility] appointment. Called patient at in an attempt to reschedule individual appointment and/or reengage patient in treatment. Spoke with patient. Patient reported that he tried to reach out by email today to attempt to reschedule todays appointment. Patient reported that he would like to reschedule todays appointment. The undersigned informed patient that he would alert [facility] to contact him to reschedule appointment. Patient thanked the undersigned and apologize for missing todays appointment. Future Clinic Visits 01/23/2025 09:00 [facility] [address] [facility] SPECIALIST 12/12/2025 11:00 SPR PACT 10 /evy/ JETT TURNER, [facility] Weatherization Technician Signed: 01/18/2025 11:18 JETT TURNER [place] [facility]
--- OUTSIDE RECORDS SUMMARY | 2025-04-04 13:32 | XMS_ITS ---
Author Name [facility] [place] Organization [facility] [place] Address [address] [place] [address] Care Team Providers Care Aeronautical Project Engineer Name Role Phone GUILLE ALONZO Primary Care Provider Unavailabl e Selected Encounter This section includes the information on record at [place] for the Encounter. Date/Time Encounter Type Encounter Description Reason Pro vider Source April 03, 2025 09:00 AM Outpatient Encounter SUBSTANCE USE DISORDR GRP IHE Encounter Template Text not used by [place] Plan of Treatment: Future Appointments (+ 6 months) and Future Tests (+/- 45 days) The Plan of Treatment section includes future care activities for the patient from all [place] treatmentfacilities. This section includes future appointments and future orders which are active, pending or scheduled. Future Appointments This section includes appointments that were scheduled to occur 6 months from the date of the Encounter, up to a maximum of 20 appointments. The data comes from all [place] treatment facilities. Appointment Date/Time Appointment Type Appointme nt Facility Name April 06, 2025 09:00 AM AMBULATORY - PS[place]IATRY [place] [facility] [place] [facility] April 06, 2025 10:00 AM AMBULATORY PS[place]CHIATRY [place] [facility] [place] [place] [facility] April 06, 2025 11:00 AM AMBULATORY PS[place]CHIATRY [place] [facility] [place] [place] [facility] April 07, 2025 09:00 AM [facility] [place] [facility] April 07, 2025 10:00 AM [facility] [place] [facility] April 07, 2025 11:00 AM AMBULATORY - PS[place]CHIATRY [place] [facility] [place] [place] [facility] April 10, 2025 09:00 AM AMBULATORY - PSYCHIATRY [place] [facility] [place] [facility] April 10, 2025 10:00 AM AMBULATORY - PS[place]CHIATRY [place] [facility] [place] [facility] April 10, 2025 11:00 AM [facility] [place] [facility] April 13, 2025 09:00 AM [facility] [place] [facility] April 13, 2025 10:00 AM [facility] [place] [facility] April 13, 2025 11:00 AM [facility] [place] [facility] April 14, 2025 09:00 [facility] Active, Pending, and Scheduled Orders This section includes a listing of several types of active, pending, and scheduled orders, including clinic medications orders, diagnostic test orders, procedure orders and consult orders; where the start date of the order is 45 days before the date of the Encounter or 45 days after the date of theEncounter. The data comes from all [place] treatment facilities. Test Date/Time Test Type Test Details Facility Name Mar 16, 2025 02:56 PM Consult Order [facility]PT Cons Commodity Supervisor's Choice [facility] [place] [facility] Mar 20, 2025 01:56 PM Laboratory - Chemi stry Order DRUGS OF ABUSE URINE (DRUG) [facility] [place] [facility] Mar 27, 2025 01:56 PM Laboratory - Chemi stry Order DRUGS OF ABUSE URINE (DRUG) SP [place] [facility] [place] [facility] April 03, 2025 01:56 PM Laboratory - Chemi stry Order DRUGS OF ABUSE URINE (DRUG) [facility] [place] [facility] April 10, 2025 01:56 PM Laboratory - Chemi stry Order DRUGS OF ABUSE URINE (DRUG) SP [place] [facility] [place] [facility] April 17, 2025 01:56 PM Laboratory - Chemi stry Order DRUGS OF ABUSE URINE (DRUG) [facility] [place] [facility] Social History: Smoking Status (Most current) and Tobacco Use (All prior to encounter date) This section includes the most current, and the historical, smoking and tobacco- related health factors from the [place] facility where the Encounter took place. Current Smoking Status This section includes the most current smoking, or tobacco-related health factor, from the [place] facility where the Encounter took place. Date/Time Current Smoking Status Comment Facil ity Nov 17, 2024 04:59 PM VA-TOBACCO NEVER U SED CIGARETTES [facility] Tobacco Use History This section includes a history of the smoking, or tobacco-related health factors, that were collected on or before the date of the Encounter. The data comes from the [place] facility where the Encounter took place. Date/Time Smoking Status/Tobacco Use Comment F acility Nov 17, 2024 04:59 PM VA-TOBACCO NEVER U SED OTHER TYPE [facility] Advance Directives: All historical and current Section Date Range: From patient's date of to the date document was created. This section includes ALL of a patient's completed or amended [place] Advance and Rescinded Directives. The entries below indicate that a directive exists for the patient, but an actual copy is not included with this document. The data comes from all [place] facilities. Date Advance Directives Provider Source Dec 13, 2024 AD[facility] Encounter Notes: All associated encounter notes This section contains the clinical notes associated to the Encounter. Date/Time Encounter Note(s) Provider Source April 03, 2025 01:23 PM ADMINISTRATIVE NOTE: LOCAL TITLE: ADMINISTRATIVE NOTE STANDARD TITLE: ADMINISTRATIVE NOTE DATE OF NOTE: APRIL 03, 2025@13:23 ENTRY DATE: APRIL 03, 2025@13:23:20 AUTHOR: JÚNIOR SANCHEZ EXP COSIGNER: URGENCY: STATUS: COMPLETED [facility] mailed no show letter to [facility] on 04/03/2025, [facility] has future visits scheduled in this clinic/group. [facility] left a HIPAA compliant voice mail that provider missed them at their scheduled appointment. [facility] confirmed next appointment. /evy/ JÚNIOR SANCHEZ ADVANCED SALES EXHIBITOR Signed: 04/03/2025 13:24 Receipt Acknowledged By: 04/03/2025 13:53 /evy/ ALEXX ESPINO [facility] CLINICAL WELDER EXPERIMENTAL JÚNIOR SANCHEZRL [facility]
--- OUTSIDE RECORDS SUMMARY | 2025-04-04 13:32 | XMS_ITS | Patient Health Record ---
Author Organization Terrell Lorenz MD Address [address] [place], [place] [address] Care Team Providers Care Rn Vascular Name Role Phone Terrell Lorenz Primary Care Provider [phone] Allergies No Known Allergies Results Component Value Reference Range Notes Occult Blood, Stool, Guaiac Reviewed date:04/04/2024 10:41:14 AM Interpretation:Negative Performing Lab: Notes/Report: Negative Occult Blood, Stool, Guaiac Neg PSA,Total (Free>4and<10) (No t yet reviewed by provider) Interpretation: Performing Lab:[facility], [address] [place] [id number] Notes/Report: PSA,Total (Free>4and<10) 0.38 0.00-4.00 ng/mL A [...] (Not yet reviewed by provider) Interpretation: Performing Lab:[facility], [address] [place] [phone] Notes/Report: Urine, Clean Catch Color Urine Dark Yellow Appearance Urine Clear PH 5.5 5.0-9.0 Glucose Urine UA Negative Negative mg/dL Urine Blood Negative Negative Specific [place] - Urine >= 1.030 1.005-1.025 Urine Protein [...] ff Reviewed date:04/04/2025 12:12:11 PM Interpretation: Performing Lab:[facility], [address] [place] [phone] Notes/Report: White Blood Count 13.4 4.8-10.8 X10*3/uL [...] X10*3/uL NRBC Abs Auto 0.000 0.0-0.012 X10*3/uL Reason For Referral No Information Medications Medication SIG (Take, Route, Frequency, Duration) Notes Start Date End Date Status Levothyroxine Sodium 50 MCG 1 tablet in the morning on an empty stomach Orally Once a day for 30 day(s) Active Simvastatin 20 MG 1 tablet in the evening Orally Once a day for 30 day(s) Active Lisinopril 10 MG 1 tablet Orally Once [...] 1 MG as directed Orally Not-Takin g Immunizations Vaccine Route Administration Date Status Comme nts Covid Vaccine Unknown 04/02/2021 Administered Moderna SARS-COV-2 Moderna Unknown 04/02/2021 Administered SARS-COV-2 Moderna Unknown 04/30/2021 Administered Fluarix Quadrivalent IM Intramuscular 08/15/2021 Administe red Fluarix Quadrivalent Unknown 04/05/2021 Refused Fluarix Quadrivalent Unknown 01/06/2023 Refused Social History Tobacco Use: Social History Observation [...] 0 Interpretation Negative Section Notes: Stopped drinking 6 months ag o Stopped drinking 6 months ag o Stopped drinking 6 months ag o Stopped drinking 3 years ago Stopped drinking 3 years ago Stopped drinking 3 years ago Stopped drinking 06-13-24 Stopped drinking 3 years ago Stopped drinking 06-13-24 Problems Problem Type SNOMED Code ICD Code Onset Dates Problem Status W/U Status Risk Notes Problem 28417950 Rectal bleeding (K62.5) Active confirmed Problem [id number] Erectile dysfunction due to arterial insufficiency (N52.01) Active confirmed Problem 15377816 Smoker (F17.200) Active confirmed Problem 206152074 Cervical disc disease (M50.90) Active confirmed Problem 947304965 Leukocytosis, unspecified type (D72.829) Active confirmed Problem 665646652 Pure hypercholesterole malcom, unspecified (E78.00) Active confirmed Problem 928401018 History of alcohol abuse (F10.11) Active confirmed Vital Signs Blood pressure diastolic 66 mm Hg 09/30/2024 alannah ght is up 33 pounds since 04-04-24 Height 69 in 09/30/2024 weight is up 33 pounds since 04-04-24 Blood pressure systolic 92 mm Hg 09/30/2024 weig ht is up 33 pounds since 04-04-24 Weight 209 lbs 09/30/2024 weight is up 33 pounds since 04-04-24 BMI 30.86 kg/m2 09/30/2024 weight is up 33 pounds since 04-04-24 Encounters Encounter Location Date Provider Diagnosis Terrell Lorenz MD [address] [place] [id number] 04/04/2025 Terrell Lorenz Blood tests for routine general physical examination Z00.00 ; Pure hypercholesterolemia , unspecified E78.00 and Leukocytosis, unspecified type D72.829 Terrell Lorenz MD [address] [place] [id number] 04/04/2024 Terrell Lorenz Smoker F17.200 ; Adult general medical examination Z00.00 ; Pure hypercholesterolemia , unspecified E78.00 ; Leukocytosis, unspecified type D72.829 ; History of alcohol abuse F10.11 ; Encounter for screening colonoscopy Z12.11 and Depression screening Z13.31 Terrell Lorenz MD [address] [place] [id number] 09/30/2024 Terrell Lorenz History of alcohol abuse F10.11 Terrell Lorenz MD [address] [place] [id number] 09/30/2024 Terrell Lorenz MD [address] [place] [address] Drive [address] [place], [place] [id number] 12/16/2024 Terrell Lorenz Assessments Encounter Date Diagnosis (ICD Code) Assessment Notes Treatment Notes Treatment Clinical Notes Section Notes 04/04/2025 Blood tests for routine general physical examination (ICD-10 - Z00.00) 04/04/2024 Smoker (ICD-10 - F17.200) says he plans on quitting 04/04/2024 Adult general medical examination (ICD-10 - Z00.00) labs reviewed and discussed with patient 09/30/2024 History of alcohol abuse (ICD-10 - F10.11) has been in treatment from may to august. have no records of treatment. apperently fighting with his son and started drinking and then got into his truck. police arrested him on the spot. this will be his 4th offence which could put him in [facility]. i spoke about staying sober and the [...] spent reviewing documentation and counseling the patient. 04/04/2025 Pure hypercholesterol emia, unspecified (ICD-10 - E78.00) 04/04/2024 Pure hypercholesterol emia, unspecified (ICD-10 - E78.00) not high enough to treat, will continue to monitor 04/04/2025 Leukocytosis, unspecified type (ICD-10 - D72.829) 04/04/2024 Leukocytosis, unspecified type (ICD-10 - D72.829) is stable. all his past ones were similar 04/04/2024 History of alcohol abuse (ICD-10 - F10.11) 4 years without drinking 04/04/2024 Encounter for screening colonoscopy (ICD-10 - Z12.11) guaiac negative 04/04/2024 Depression screening (ICD-10 - Z13.31) negative screen Plan Of Treatment Pending Test Test Name Order Date Comprehensive [place]. Panel Fast Lipid Panel 04/04/2025 PSA,Total (Free>4and<10) 04/04/2025 UA ClnCatch+Micro w/rflx Cult 04/04/2025 URINALYSIS, COMPLETE 05/03/2021 Next Appt Details Provider Name:Terrell Montalvo isaurar, 04/07/2025 08:30:00 AM, [address] [place] [address], [address], [place], [place], [id number], Insurance Providers Payer Name Payer Address Payer Phone Subscriber Number Group Number Insured Name Patient Relationship to Insured Coverage Start Date Coverage End Date [employer] [address] [place], [place] [phone] [id number] Amrik Wilson Self - patient is the insured [facility] [address] [address] [place] [address] [id number] Amrik Wilson Self - [facility] the [facility] [address] [place] [address] [phone] [id number] Amrik Wilson Self - patient is the insured Medical (General) History Medical History History ICD Code was in [facility] last year for black ou t from [facility]. no alcohol in 6 months colonoscopy 2021 repeat in 5 years due t o bad prep
--- OUTSIDE RECORDS SUMMARY | 2025-04-04 13:32 | XMS_ITS | Encounter Summary ---
Author Organization [facility] Address [address] [place] [address] Care Team Providers Care It Security Consulting Director Name Role Phone Елена Sharp MD Primary Care Provider [phone] Reason for Visit * Reason Onset Date Comments TEST RESULTS 03/22/2018 result notes Encounter Details Date Type Department Care Team Description 03/22/2018 Telephone Adult Medicine [address] [phone] Елена Sharp MD [address] [place] [address] [phone] TEST RESULTS (result notes) Social History Tobacco [...] Telephone Encounter - Deni Hancock M.A. - 03/22/2018 11:11 AM EDT Spoke with patient all set. Please inform patient that his cholesterol did [...] on filedocumented in this encounter Care Teams It Security Consulting Director Relationship Specialty Start Date End Date Елена Sharp MD [address] [place], [place] [phone] PCP - General Internal Medicine 02/15/18 documented as of this encounter
--- OUTSIDE RECORDS SUMMARY | 2025-04-04 13:32 | XMS_ITS ---
Author Organization Terrell Lorenz MD Address [address] [place], [place] [phone] Care Team Providers Care Hot Die Press Feeder Name Role Phone Terrell Lorenz Primary Care Provider [phone] REASON FOR VISIT RECORDS TO [facility] Encounters Encounter Location Date Provider Diagnosis Terrell Lorenz MD [address] [place], [place] [phone] 12/16/2024 Terrell Lorenz Plan Of Treatment Next Appt Details Provider Name:Terrell Montalvo ier, 04/07/2025 08:30:00 AM, [address], [address], [place], [place], [phone], Progress Notes * Amrik WILSONDOB: 5 (49 yo M)Acc No.[id number]:12/16/2024 Patient:?Amrik Wilson :1975???Age:49 Y???Sex:Male Address:[place], [address] * true * Date:? Generated for Printi ng/Fakareng/eTransmitting on:?04/04/2025 01:32 PM EDT
--- OUTSIDE RECORDS SUMMARY | 2025-04-04 13:32 | XMS_ITS | Encounter Summary ---
Author Name [facility] Organization [facility] Address [address] [place] [id number] Care Team Providers Care Job Trainer Name Role Phone GUILLE ALONZO Primary Care Provider Unavailabl e Selected Encounter This section includes the information on record at OR for the Encounter. Date/Time Encounter Type Encounter Description Reason Provider Source March 31, 2025 09:00 AM PEER RECOVER SUPPORT SVS SUBSTANCE USE DISORDR GRP ICD-10-CM F10.20 Alcohol dependence, uncomplicated JUANCHO POST R [facility] Encounter Template Text not used by OR Assessments - Encounter Diagnoses This section includes the primary and secondary diagnoses documented for the Encounter. Date/Time Primary/Secondary Diagnosis Diagnosis Name Provider Source March 31, 2025 12:46 PM PRIMARY Alcohol dependence, uncomplicated JUANCHO POST [facility] March 31, 2025 12:46 PM SECONDARY Adjustment disorder with depressed mood JUANCHO POST [facility] Plan of Treatment: Future Appointments (+ 6 months) and Future Tests (+/- 45 days) The Plan of Treatment section includes future care activities for the patient from all [place] treatmentfacilities. This section includes future appointments and future orders which are active, pending or scheduled. Future Appointments This section includes appointments that were scheduled to occur 6 months from the date of the Encounter, up to a maximum of 20 appointments. The data comes from all [place] treatment facilities. Appointment Date/Time Appointment Type Appointme nt Facility Name April 03, 2025 09:00 AM [facility]ATORY [facility] [place] April 03, 2025 10:00 AM [facility] April 03, 2025 11:00 AM [facility] April 06, 2025 09:00 AM [facility] April 06, 2025 10:00 AM [facility] April 06, 2025 11:00 AM [facility] [place] April 07, 2025 09:00 AM [facility] April 07, 2025 10:00 AM AMBUL[facility] [place] [facility] April 07, 2025 11:00 AM AMBUL[facility] [place] [facility] April 10, 2025 09:00 AM AMBULATORY [facility] [place] [facility] April 10, 2025 10:00 AM AMBULATORY [facility] [place] [facility] April 10, 2025 11:00 AM AMBULATORY [facility] [place] [facility] April 13, 2025 09:00 AM AMBULATORY [facility] [place] [facility] April 13, 2025 10:00 AM AMBULATORY [facility] [place] [facility] April 13, 2025 11:00 AM AMBUL[facility] [place] [facility] April 14, 2025 09:00 AM AMBULATORY - PS[place]IATRY [place] [facility] [place] [facility] Active, Pending, and Scheduled Orders This section includes a listing of several types of active, pending, and scheduled orders, including clinic medications orders, diagnostic test orders, procedure orders and consult orders; where the start date of the order is 45 days before the date of the Encounter or 45 days after the date of theEncounter. The data comes from all [place] treatment facilities. Test Date/Time Test Type Test Details Facility Name Mar 16, 2025 02:56 PM Consult Order [facility] Cons Mannequin Mounter's Choice [facility] [place] [facility] Mar 20, 2025 01:56 PM Laboratory - Chemi stry Order DRUGS OF ABUSE URINE (DRUG) SP [facility] Mar 27, 2025 01:56 PM Laboratory - Chemi stry Order DRUGS OF ABUSE URINE (DRUG) SP [facility] April 03, 2025 01:56 PM Laboratory - Chemi stry Order DRUGS OF ABUSE URINE (DRUG) SP [facility] April 10, 2025 01:56 PM Laboratory - Chemi stry Order DRUGS OF ABUSE URINE (DRUG) SP [facility] April 17, 2025 01:56 PM Laboratory - Chemi stry Order DRUGS OF ABUSE URINE (DRUG) SP [facility] Social History: Smoking Status (Most current) and Tobacco Use (All prior to encounter date) This section includes the most current, and the historical, smoking and tobacco- related health factors from the [place] facility where the Encounter took place. Current Smoking Status This section includes the most current smoking, or tobacco-related health factor, from the [place] facility where the Encounter took place. Date/Time Current Smoking Status Comment Facil ity Nov 17, 2024 04:59 PM VA-TOBACCO NEVER U SED CIGARETTES [facility] Tobacco Use History This section includes a history of the smoking, or tobacco-related health factors, that were collected on or before the date of the Encounter. The data comes from the [place] facility where the Encounter took place. Date/Time Smoking Status/Tobacco Use Comment F acility Nov 17, 2024 04:59 PM OR-TOBACCO NEVER U SED OTHER TYPE [facility] Advance Directives: All historical and current Section Date Range: From patient's date of to the date document was created. This section includes ALL of a patient's completed or amended [place] Advance and Rescinded Directives. The entries below indicate that a directive exists for the patient, but an actual copy is not included with this document. The data comes from all [place] facilities. Date Advance Directives Provider Source Dec 13, 2024 [facility] Encounter Notes: All associated encounter notes This section contains the clinical notes associated to the Encounter. Date/Time Encounter Note(s) Provider Source March 31, 2025 09:00 AM MENTAL HEALTH GROUP COUNSELING NOTE: LOCAL TITLE: PEER SUPPORT GROUP NOTE STANDARD TITLE: MENTAL HEALTH GROUP COUNSELING NOTE DATE OF NOTE: MARCH 31, 2025@09:00 ENTRY DATE: MARCH 31, 2025@12:41:05 AUTHOR: SAVI POST COSIGNER: URGENCY: STATUS: COMPLETED IOP / PEER SUPPORT GROUP NOTE DATE: 03/31/2025 TIME: 0900 to 1100 hrs TIME IN SESSION (IN MINUTES): 45 min each session for total of 180 minutes FACILITATORS: Juancho Post M.Ed.,[facility] PURPOSE/FOCUS: 1-Process / 2-WRAP / 3-MBC LOCATION: [facility] IOP, In Person, [facility] CONTENT SECTION 1 0900 hours: was 1 of 6 members in a 45-minute group addressing issues related to substance use disorders and co-occurring psychiatric issues. Group briefly reviewed highlights and learning objectives of the past weeks session in [facility]. Review allows member(s) who had missed any section, an opportunity to experience any gaps in the program, Each was encouraged to share individually which sessions they felt getting the most meaning from the material and how that will connect to their individual recovery. Discussion encouraged each to incorporate strategies and sessions discussed to their own individual Wellness Recovery Action Plan (WRAP). -- ----- CONTENT SECTION 2 1000 hours: Session focused on Wellness Recovery Action Plan section 5 Crisis Plan / Advanced Directives. Group covered the felix components of hope, responsibility, education, advocacy, and support to develop a plan to recovery. Veterans discussed and were able to identify signs of a crisis and create a detailed plan for their self-care, treatment wishes, supporters roles, and directives necessary to their treatment Participants were encouraged write down personal responses to writing prompts and fill in appropriate documentation in the workbook. -- ---- CONTENT SECTION 3 1100 hours: During today's Wrap UP group, several goals were accomplished: Provided psychoeducation on the role of Measurement Based Care (MBC) in treatment and the BANNER-IOP was distributed. Veterans examined their personal risk and protective factors. Other topics included processing what care and homework is going to be worked on and what sessions stood out over past week. Identified with 2 Identifiers [x] Full Name [ ] Date of [ ] VA ID Card [x] Facial recognition Group will convene in one week and move onto new group topic. Procedure: Self-Help/Peer Support Group Plan: Continue IOP Baltic engaged with the fire sprinkler fitter and with other group members appropriately asking question Baltic reported working on identified risks to their recovery planning. Baltic reported working on distress tolerance, procrastination as a protective factor over the next week. did not endorse suicidal or homicidal ideation. Baltic shared share the highlights in the session that has assisted in moving forward in recovery. As a group the favorite learning moments came procrastination, and sleep hygiene TAKE HOME ASSIGNMENT(s): Process: identify red and green flags WRAP: Continue working in the crisis plan MBC: realize individual risks and identify protective factor(s). DIAGNOSIS(ES): Alcohol use disorder, severe; PTSD ([place]) VA Video Connect (VVC) Standard Documentation VVC Clinician Resources Only: E911 (Emergency Call Relay Center): [phone] Local emergency response numbers can be found at http://www.Madvenue. National Veterans Crisis Line - (4-004-207-TALK) press #1. [place] Suicide Coordinator - [phone], Ext. [phone]; Back-up Ext. [phone] Urgent Care, [facility] SIL[facility] - [phone], Ext. [phone] Introduction: Visit is being conducted by [place] Video Connect. identified with 2 identifiers: [X] Full Name [ ] Date of [X] Address [ ] VA ID Card Emergency Plan: Baltic confirmed and/or provided the following information in case of emergency or technology failure. PATIENT PHONE - PHONE NUMBER [CELLULAR] - Is patient phone number correct, if not, enter below: Baltic's phone number: n/a Lalo Oshea [address] [place] [phone] Baltic's present location and address for appointment: [address] [place] [address] 's emergency contact name and phone number: E-Jessica.: JENNIFER OSHEA Relation Type: UNRELATED FRIEND/OTHER Relation Note: UNRELATED FRIEND/OTHER [address] [place] [address] Baltic reported that location is private and safe: Yes /es/ SAVI POST Signed: 03/31/2025 12:46 SAVI POST [facility]
--- OUTSIDE RECORDS SUMMARY | 2025-04-04 13:32 | XMS_ITS | Continuity of Care Document ---
Author Name [facility] Organization [facility] Care Team Providers Care Asbestos Wire Finisher Name Role Phone [facility] Unavailable Unavailable Problems Combined list of problems from Department [facility] and Veterans Affairs facilities. It does not include entries that were removed or entered in error. Problem Status Onset Date Problem Type Date of Resolution Comments Source Adjustment disorder with depressed mood Active Condition [facility] (781GE) Alcohol abuse [facility] Alcohol dependence Active Condition [facility] (911GE) Colonoscopy Screening Active Condition [facility] Hyperlipidemia Active Condition [facility] IELD Hypertension Active Condition [facility] LD Hypothyroidism Active Condition [facility] IE NonVA Providers Active Condition Dec 13, 2024 Entered By: GUILLE ALONZO Comment: PCP: Dr Terrell Lorenz [facility] Obesity Active Condition [facility] Tobacco dependence Active Condition [facility] Diagnosis: ICD-10-CM F10.20 Alcohol dependence, uncomplicated Active Diagnosis [facility] [place] [facility] Diagnosis: ICD-10-CM F43.21 Adjustment disorder with depressed mood Active Diagnosis [facility] [place] [facility] Diagnosis: ICD-10-CM F10.10 Alcohol abuse, uncomplicated Active Diagnosis [facility] [place] [facility] Diagnosis: ICD-10-CM Z65.3 Problems related to other legal circumstances Active Diagnosis [facility] [place] [place] [facility] Medications Combined list of outpatient medications from Department [facility] and Veterans Affairs facilities.Medications provided include 1) outpatient medications from the last 15 months, and 2) patient-reported medications. Medication Details Route Status Patient Instructions Prescription Expires Prescription Number Last Dispense Date Ordering Provider Order Date Order Qty Source IBUPROFEN 800MG TAB TAKE ONE TABLET BY MOUTH THREE TIMES A DAY ORAL ACTIVE ROSEANNE ALONZO SA 2024 I[place] LEVOTHYROXI NE NA 50MCG TAB (SYNTHROID) TAKE ONE TABLET BY MOUTH EVERY MORNING 30 MINUTES BEFORE BREAKFAS T ORAL ACTIVE ROSEANNE ALONZO SA 01/13/ 2025 [place] LISINOPRIL 10MG TAB TAKE ONE TABLET BY MOUTH ONCE DAILY ORAL ACTIVE ROSEANNE ALONZO SA 2024 IELD SIMVASTATIN 40MG TAB TAKE ONE-HALF TABLET BY MOUTH ONCE DAILY ORAL ACTIVE ROSEANNE ALONZO SA CRISTHIAN 2024 IEKEVIN TADALAFIL 10MG TAB TAKE ONE TABLET BY MOUTH PRN ORAL ACTIVE ROSEANNE ALONZO SAE 2024 IELD Vital Signs Combined list of inpatient and outpatient Vital Signs from Department of Defense and Veterans Affairs, ranging from 12 months to all on record, depending upon the facility. Vital Sign Value Date Comments Source SYSTOLIC BLOOD PRESSURE 138 12/13/19 25 15:08:09 [facility] [place] [facility] DIASTOLIC BLOOD PRESSURE 87 025 15:08:09 [facility] [place] [facility] PULSE OXIMETRY 99 12/13/2024 15:08:09 [facility] [place] [facility] WEIGHT 201.4 12/13/2024 15:08:09 [facility] BMI 31 kg/m2 12/13/2024 15:08:09 [facility] PAIN 0 12/13/2024 15:08:09 [facility] [place] [facility] HEIGHT 68 12/13/2024 15:08:09 [facility] TEMPERATURE 98.1 12/13/2024 15:08:09 [facility] PULSE 71 12/13/2024 15:08:09 [facility] [place] [facility] RESPIRATION 16 12/13/2024 15:08:09 [facility] [place] [facility] Encounters Combined list of: 1) Encounters from Department of Veterans Affairs facilities going backup to the last 18 months, not all [place] inpatient encounters are included; 2) Encounters from the Department of Defense facilities going backup to 280 months. Location Location Details Encounter Type Encounter Number Reason For Visit Attending Provider ADM Date DC Date Status Disposition Source [place] [facility] [place] [facility] Outpatient Encounter [id number] 09/30 [facility] En[facility] [id number] 1.11/14 [facility] Out[facility] Encounter [id number] 1.11/16 [facility] PSYCH DIAGNOSTIC EVALUATION [id number] 1. Diagnos is: ICD-10- CM Z65.3 Problem s related to other legal circums tances CARMEN PATINO 11/17 [facility] En[facility] [id number] [facility] Encounter [id number] [facility] En[facility] [id number] 1.12/13 [facility] Encounter [id number] 12/13 [facility] [place] [facility] O/P NEW MOD 45 MIN [id number] Diagnos is: ICD-10- CM F10.20 Alcohol depende nce, uncompl icated HUDSON ALONZO CRISTHIAN 12/13 [place] [facility] Out[facility] Encounter [id number] 1.12/13 [facility] [place] Outpatient Encounter [id number] 12/27 [place] [facility] Out[facility] Encounter [id number] 12/27 [facility] [place] [place] [facility] CASE MANAGEMENT [id number] Diagnos is: ICD-10- CM F10.20 Alcohol depende nce, uncompl icated DEMCARMEN RAYMUNDO MINA R 01/11 [facility] En[facility] [id number] 01/18 [facility] [place] [place] PSYCH DIAGNOSTIC EVALUATION [id number] Diagnos is: ICD-10- CM F10.20 Alcohol depende nce, uncompl icated LAKBRIAN,TAT SEYMOUR 01/23 [facility] PEER RECOVER SUPPORT SVS [id number] Diagnos is: ICD-10- CM F43.21 Adjustm ent disorde r with depress ed mood SAVI HERNANDEZ R 01/24 [facility] GROUP PSYCHOTHER APY [id number] Diagnos is: ICD-10- CM F10.20 Alcohol depende nce, uncompl icated LAKALO,TAT SEYMOUR 01/24 [facility] [place] [place] [facility] CASE MANAGEMENT [id number] Diagnos is: ICD-10- CM F10.20 Alcohol depende nce, uncompl icated DEMCARMEN RAYMUNDO MINA R 01/24 [facility] CASE MANAGEMENT [id number] Diagnos is: ICD-10- CM F10.20 Alcohol depende nce, uncompl icated DEMARECARMEN Ruiz R 01/25 [facility] Out[facility] Encounter [id number] 01/26 [facility] PEER RECOVER SUPPORT SVS [id number] Diagnos is: ICD-10- CM F43.21 Adjustm ent disorde r with depress ed mood DAVID SAVI R 01/27 [facility] En[facility] [id number] 01/31 [facility] En[facility] [id number] 01/31 [facility] Encounter [id number] 02/02 [facility] En[facility] [id number] 02/02 [facility] CASE MANAGEMENT [id number] Diagnos is: ICD-10- CM F10.20 Alcohol depende nce, uncompl icated CARMEN PATINO R 02/16 [facility] En[facility] [id number] 03/14 [facility] En[facility] [id number] 03/16 [facility] En[facility] [id number] 03/16 [facility] CASE MANAGEMENT [id number] Diagnos is: ICD-10- CM F10.20 Alcohol depende nce, uncompl icated CARMEN PATINO R 03/16 [facility] En[facility] [id number] 03/16 [facility] Out[facility] Encounter [id number] 1. JOSELYNJOZEF TORRES 03/16 [facility] PEER RECOVER SUPPORT SVS 1. Diagnos is: ICD-10- CM F10.10 Alcohol abuse, uncompl icated SAVI HERNANDEZ R 03/20 [facility] GROUP PSYCHOTHER APY [id number] Diagnos is: ICD-10- CM F10.20 Alcohol depende nce, uncompl icated HELBOK,ANGULAR JS DEVELOPER IG 03/20 [facility] GROUP PSYCHOTHER APY [id number] Diagnos is: ICD-10- CM F10.20 Alcohol depende nce, uncompl icated ANTHONY,JOSE FRANCISCO AN 03/20 [facility] Out[facility] En[facility] [id number] 03/20 [facility] GROUP PSYCHOTHER APY [id number] Diagnos is: ICD-10- CM F10.20 Alcohol depende nce, uncompl icated ANTHONY,JOSE FRANCISCO AN 03/23 [facility] GROUP PSYCHOTHER APY [id number] Diagnos is: ICD-10- CM F10.20 Alcohol depende nce, uncompl icated WINSTON LOCKE N 03/23 [facility] Out[facility] En[facility] [id number] 03/23 [facility] CASE MANAGEMENT [id number] Diagnos is: ICD-10- CM F43.21 Adjustm ent disorde r with depress ed mood CARMEN PATINO MINA R 03/23 [facility] [place] [employer] [place] [id number] Diagnos is: ICD-10- CM F10.20 Alcohol depende nce, uncompl icated SAVI HERNANDEZ R 03/24 [facility] [place] [employer] [place] [id number] Diagnos is: ICD-10- CM F10.20 Alcohol depende nce, uncompl icated SAVI HERNANDEZ R 03/27 [facility] Out[facility] En[facility] [id number] 03/30 [facility] Out[facility] En[facility] [id number] 03/30 [facility]ER RECOVER SU[facility] [place]S [id number] Diagnos is: ICD-10- CM F10.20 Alcohol depende nce, uncompl icated [facility]AVI HERNANDEZ 03/31 [facility] Outpatient Encounter [id number] 04/03 [facility] Social History Combined list of available smoking, tobacco, and other social history from Department of Defense and Veterans Affairs facilities. Social History Type Response Date Comment Sourc e Tobacco smoking status NHIS [place]-TOBACCO NEVER USED CIGARETTES 11/17/2024 [facility] History of tobacco use [place]-TOBACCO NEVER USED OTHER TYPE 11/17/2024 [facility] Plan of Care List of future care activities from Department of [facility] facilities. Additional future care activities may be listed in the Assessment and Plan section. Date/Time Care Activity Care Activity Detail Facili ty 04/06/2025 AMBULATORY - PSYCHIATRY AMBULATORY - PSYC HIATRY [facility] Advance Directives List of completed, amended, or rescinded Advance Directives on record at Department of [facility] facilities. An actual copy of the Directive is not included. Date Advance Directive Provider Source 12/13/2024 ADVANCE DIRECTIVE JEFFREY FLORES [facility]
--- OUTSIDE RECORDS SUMMARY | 2025-04-04 13:33 | XMS_ITS ---
Author Name [facility] [place] [facility] [place] Organization [facility] [place] Address [address] [place] [address] Care Team Providers Care Medical Liaison Name Role Phone GUILLE ALONZO Primary Care Provider Unavailabl e Selected Encounter This section includes the information on record at [place] for the Encounter. Date/Time Encounter Type Encounter Description Reason Pro vider Source March 30, 2025 09:00 AM Outpatient Encounter SUBSTANCE USE DISORDR GRP IHE Encounter Template Text not used by [place] Plan of Treatment: Future Appointments (+ 6 months) and Future Tests (+/- 45 days) The Plan of Treatment section includes future care activities for the patient from all [place] treatmentfacilities. This section includes future appointments and future orders which are active, pending or scheduled. Future Appointments This section includes appointments that were scheduled to occur 6 months from the date of the Encounter, up to a maximum of 20 appointments. The data comes from all [place] treatment facilities. Appointment Date/Time Appointment Type Appointme nt Facility Name March 31, 2025 09:00 AM AM[place]ULATORY [place] [facility] [place] [facility] April 03, 2025 09:00 AM AMBUL[place]ORY [place] [facility] [facility] April 03, 2025 10:00 AM AM[place]UL[place]ORY [place]RY [place] [facility] [place] [facility] April 03, 2025 11:00 AM [facility] [place] [facility] April 06, 2025 09:00 AM [facility] [place] [facility] April 06, 2025 10:00 AM AMBULATORY [facility]ATRY [facility] [place] [facility] April 06, 2025 11:00 AM AMBULATORY - [facility]IATRY [facility] [place] [facility] April 07, 2025 09:00 AM AMBULATORY - PS[facility]IATRY [place] [facility] [place] [facility] April 07, 2025 10:00 AM AMBULATORY - PS[facility]IATRY [facility] [place] [place] [facility] April 07, 2025 11:00 AM AMBULATORY - PS[facility]IATRY [facility] [place] [facility] April 10, 2025 09:00 AM AMBULATORY - PS[place]IATRY [place] [facility] [place] [facility] April 10, 2025 10:00 AM AMBULATORY - [facility]IATRY [place] [facility] [place] [facility] April 10, 2025 11:00 AM AMBULATORY - PS[facility]IATRY [place] [facility] [place] [facility] April 13, 2025 09:00 AM AMBULATORY - PS[facility]IATRY [place] [facility] [place] [facility] April 13, 2025 10:00 AM AMBULATORY - PS[facility]CHIATRY [place] [facility] [place] [facility] April 13, 2025 11:00 AM AMBULATORY - PS[place]IATRY [place] [facility] [place] [facility] April 14, 2025 09:00 AM AMBULATORY [place]RY [place] [facility] [place] [facility] Active, Pending, and Scheduled Orders This section includes a listing of several types of active, pending, and scheduled orders, including clinic medications orders, diagnostic test orders, procedure orders and consult orders; where the start date of the order is 45 days before the date of the Encounter or 45 days after the date of theEncounter. The data comes from all [place] treatment facilities. Test Date/Time Test Type Test Details Facility Name Mar 16, 2025 02:56 PM Consult Order [facility] Cons Sleever's Choice [facility] [place] [facility] Mar 20, 2025 01:56 PM Laboratory - Chemi stry Order DRUGS OF ABUSE URINE (DRUG) SP [facility] [place] [facility] Mar 27, 2025 01:56 PM Laboratory - Chemi stry Order DRUGS OF ABUSE URINE (DRUG) SP [place] [facility] [place] [facility] April 03, 2025 01:56 PM Laboratory - Chemi stry Order DRUGS OF ABUSE URINE (DRUG) SP [facility] April 10, 2025 01:56 PM Laboratory - Chemi stry Order DRUGS OF ABUSE URINE (DRUG) SP [facility] April 17, 2025 01:56 PM Laboratory - Chemi stry Order DRUGS OF ABUSE URINE (DRUG) SP [facility] Social History: Smoking Status (Most current) and Tobacco Use (All prior to encounter date) This section includes the most current, and the historical, smoking and tobacco- related health factors from the [place] facility where the Encounter took place. Current Smoking Status This section includes the most current smoking, or tobacco-related health factor, from the [place] facility where the Encounter took place. Date/Time Current Smoking Status Comment Facil ity Nov 17, 2024 04:59 PM VA-TOBACCO NEVER U SED CIGARETTES [facility] Tobacco Use History This section includes a history of the smoking, or tobacco-related health factors, that were collected on or before the date of the Encounter. The data comes from the [place] facility where the Encounter took place. Date/Time Smoking Status/Tobacco Use Comment F acility Nov 17, 2024 04:59 PM VA-TOBACCO NEVER U SED OTHER TYPE [facility] Advance Directives: All historical and current Section Date Range: From patient's date of to the date document was created. This section includes ALL of a patient's completed or amended [place] Advance and Rescinded Directives. The entries below indicate that a directive exists for the patient, but an actual copy is not included with this document. The data comes from all [place] facilities. Date Advance Directives Provider Source Dec 13, 2024 ADVANCE DIRECTIVE JEFFREY FLORES [facility] Encounter Notes: All associated encounter notes This section contains the clinical notes associated to the Encounter. Date/Time Encounter Note(s) Provider Source March 30, 2025 12:20 PM ADMINISTRATIVE NOTE: LOCAL TITLE: ADMINISTRATIVE NOTE STANDARD TITLE: ADMINISTRATIVE NOTE DATE OF NOTE: MARCH 30, 2025@12:20 ENTRY DATE: MARCH 30, 2025@12:20:25 AUTHOR: JÚNIOR SANCHEZ COSIGNER: URGENCY: STATUS: COMPLETED AMSA reached out to [place] and left a hipaa compliant voice mail that we missed him at group today, hopefully we'll see him tomorrow. AMSA requested [place] give a call back to let us know he's ok or with any questions or concerns. /evy/ JÚNIOR SANCHEZ ADVANCED COMMERCIAL RELIEF DRIVER Signed: 03/30/2025 12:22 Receipt Acknowledged By: 04/03/2025 08:26 /evy/ LAMONT CRUZ, [facility] Office Coordinator [facility]
--- OUTSIDE RECORDS SUMMARY | 2025-04-04 13:33 | XMS_ITS ---
Author Name [facility] [place] Organization [facility] [place] Address [address] [place] [id number] Care Team Providers Care Hi Lift Operator Name Role Phone GUILLE ALONZO Primary Care Provider Unavailabl e Selected Encounter This section includes the information on record at [place] for the Encounter. Date/Time Encounter Type Encounter Description Reason Pro vider Source March 30, 2025 04:49 PM Outpatient Encounter TELEPHONE [facility] I[facility] Encounter Template Text not used by [place] Plan of Treatment: Future Appointments (+ 6 months) and Future Tests (+/- 45 days) The Plan of Treatment section includes future care activities for the patient from all [place] treatmentfacilities. This section includes future appointments and future orders which are active, pending or scheduled. Future Appointments This section includes appointments that were scheduled to occur 6 months from the date of the Encounter, up to a maximum of 20 appointments. The data comes from all [place] treatment facilities. Appointment Date/Time Appointment Type Appointme nt Facility Name March 31, 2025 09:00 AM [facility] [place] [facility] April 03, 2025 09:00 AM [facility] [place] [facility] April 03, 2025 10:00 AM [facility] [place] [facility] April 03, 2025 11:00 AM [facility] [place] [facility] April 06, 2025 09:00 AM [facility] April 06, 2025 10:00 AM AM[facility]ORY - PS[facility]CHIATRY [facility] [place] [place] [facility] April 06, 2025 11:00 AM AMBULATORY - PSYCHIATRY [facility] [place] [facility] April 07, 2025 09:00 AM AMBULATORY - [facility]ATRY [facility] [place] [facility] April 07, 2025 10:00 AM AMBULATORY - PS[facility]CHIATRY [facility] [place] [facility] April 07, 2025 11:00 AM AMBULATORY - PS[facility]CHIATRY [facility] [place] [facility] April 10, 2025 09:00 AM AMBULATORY - PS[facility]CHIATRY [facility] [place] [facility] April 10, 2025 10:00 AM AMBULATORY - PSYCHIATRY [facility] [place] [facility] April 10, 2025 11:00 AM AMBULATORY - PSYCHIATRY [facility] [place] [facility] April 13, 2025 09:00 AM AMBULATORY - PSYCHIATRY [facility] [place] [facility] April 13, 2025 10:00 AM AMBULATORY - PSYCHIATRY [facility] [place] [facility] April 13, 2025 11:00 AM AMBULATORY - PSYCHIATRY [place] [facility] [place] [facility] April 14, 2025 09:00 AM AMBULATORY [place]RY [place] [facility] [place] [facility] Active, Pending, and Scheduled Orders This section includes a listing of several types of active, pending, and scheduled orders, including clinic medications orders, diagnostic test orders, procedure orders and consult orders; where the start date of the order is 45 days before the date of the Encounter or 45 days after the date of theEncounter. The data comes from all [place] treatment facilities. Test Date/Time Test Type Test Details Facility Name Mar 16, 2025 02:56 PM Consult Order [facility]PT Cons Herbicide Sprayer's Choice [facility] [place] [facility] Mar 20, 2025 01:56 PM Laboratory - Chemi stry Order DRUGS OF ABUSE URINE (DRUG) SP [facility] [place] [facility] Mar 27, 2025 01:56 PM Laboratory - Chemi stry Order DRUGS OF ABUSE URINE (DRUG) SP [facility] [place] [facility] April 03, 2025 01:56 PM Laboratory - Chemi stry Order DRUGS OF ABUSE URINE (DRUG) SP [facility] April 10, 2025 01:56 PM Laboratory - Chemi stry Order DRUGS OF ABUSE URINE (DRUG) SP [facility] April 17, 2025 01:56 PM Laboratory - Chemi stry Order DRUGS OF ABUSE URINE (DRUG) SP [facility] Social History: Smoking Status (Most current) and Tobacco Use (All prior to encounter date) This section includes the most current, and the historical, smoking and tobacco- related health factors from the [place] facility where the Encounter took place. Current Smoking Status This section includes the most current smoking, or tobacco-related health factor, from the [place] facility where the Encounter took place. Date/Time Current Smoking Status Comment Facil ity Nov 17, 2024 04:59 PM [place]-TOBACCO NEVER U SED CIGARETTES [facility] Tobacco Use History This section includes a history of the smoking, or tobacco-related health factors, that were collected on or before the date of the Encounter. The data comes from the [place] facility where the Encounter took place. Date/Time Smoking Status/Tobacco Use Comment F acility Nov 17, 2024 04:59 PM VA-TOBACCO NEVER U SED OTHER TYPE [facility] Advance Directives: All historical and current Section Date Range: From patient's date of to the date document was created. This section includes ALL of a patient's completed or amended [place] Advance and Rescinded Directives. The entries below indicate that a directive exists for the patient, but an actual copy is not included with this document. The data comes from all [place] facilities. Date Advance Directives Provider Source Dec 13, 2024 ADVANCE DIRECTIVE JEFFREY FLORES [facility] Encounter Notes: All associated encounter notes This section contains the clinical notes associated to the Encounter. Date/Time Encounter Note(s) Provider Source March 30, 2025 04:49 PM CLERICAL NOTE: LOCAL TITLE: APPOINTMENT NO SHOW STANDARD TITLE: CLERICAL NOTE DATE OF NOTE: MARCH 30, 2025@16:49 ENTRY DATE: MARCH 30, 2025@16:49:41 AUTHOR: ALEXX ESPINO COSIGNER: URGENCY: STATUS: COMPLETED Patient Name: STIVEN TELLES Patient SSN: [id number] Date and time of Appointment No show call: 03/30/25 16:49 PATIENT PHONE - PHONE NUMBER [CELLULAR] - Patient's medical record was reviewed. Follow-up actions were determined and initiated: Please check/complete as applies: [X]Telephoned Directly [ ]Re-scheduled for next available appt [ ]Sent a N0-show letter ( must call for appointment) [ ]Other (Emergent/Overbook, etc.): Additional Comments: Catharpin missed all 3 groups today for [facility]. Catharpin called answered ID self by name and . Stated he overslept. Stated he will show tomorrow 03/31. Future Clinic Visits 04/03/2025 09:00 [facility] GRP 04/03/2025 10:00 [facility] GRP 04/03/2025 11:00 [facility] GRP 04/06/2025 09:00 [facility] GRP 04/06/2025 10:00 [facility] GRP 04/06/2025 11:00 [facility] GRP 04/07/2025 09:00 [facility] GRP 04/07/2025 10:00 [facility] GRP 04/07/2025 11:00 [facility] GRP 04/10/2025 09:00 [facility] GRP 04/10/2025 10:00 [facility] GRP 04/10/2025 11:00 [facility] GRP 04/13/2025 09:00 [facility] GRP 04/13/2025 10:00 [facility] GRP 04/13/2025 11:00 [facility] GRP 04/14/2025 09:00 [facility] GRP 12/12/2025 11:00 SPR PACT 10 MD ROMERO /evy/ ALEXX ESPINO, FURNACE UNLOADER CLINICAL LEVERS LACE MACHINE OPERATOR Signed: 03/30/2025 16:50 ALEXX ESPINO [facility]
--- OUTSIDE RECORDS SUMMARY | 2025-04-04 13:33 | XMS_ITS | Encounter Summary ---
Author Name [facility] [place] Organization [facility] [place] Address [address] [place] [id number] Care Team Providers Care Interactive Art Director Name Role Phone GUILLE ALONZO Primary Care Provider Unavailabl e Selected Encounter This section includes the information on record at [place] for the Encounter. Date/Time Encounter Type Encounter Description Reason Pro vider Source Dec 27, 2024 02:00 PM Outpatient Encounter [facility] Encounter Template Text not used by [place] Plan of Treatment: Future Appointments (+ 6 months) and Future Tests (+/- 45 days) The Plan of Treatment section includes future care activities for the patient from all [place] treatmentfacilities. This section includes future appointments and future orders which are active, pending or scheduled. Future Appointments This section includes appointments that were scheduled to occur 6 months from the date of the Encounter, up to a maximum of 20 appointments. The data comes from all [place] treatment facilities. Appointment Date/Time Appointment Type Appointme nt Facility Name Jan 18, 2025 11:00 AM AMBULATORY [place] [facility] [place] [facility] Jan 23, 2025 09:00 AM AM[place]UL[place]ORY [place] [facility] [place] [facility] Jan 24, 2025 08:00 AM AMBULATORY [place] [facility] [place] [facility] Jan 24, 2025 09:00 AM AMBULATORY [place] [facility] [place] [facility] Jan 24, 2025 10:00 AM AMBULATORY [place]RY [place] [facility] [place] [facility] Jan 26, 2025 09:00 AM AMBULATORY - PS[facility]CHIATRY [facility] [place] [facility] Jan 26, 2025 11:00 AM AMBULATORY - PSYCHIATRY [facility] [place] [facility] Jan 27, 2025 09:00 AM AMBULATORY - PSYCHIATRY [facility] [place] [facility] Mar 20, 2025 08:01 AM AMBULATORY - PSYCHIATRY [facility] [place] [facility] Mar 20, 2025 09:00 AM AMBULATORY - PSYCHIATRY [facility] [place] [facility] Mar 20, 2025 10:00 AM AMBULATORY - PSYCHIATRY [facility] [place] [facility] Mar 20, 2025 11:00 AM AMBULATORY - PSYCHIATRY [facility] [place] [facility] Mar 23, 2025 09:00 AM AMBULATORY - PSYCHIATRY [facility] [place] [facility] Mar 23, 2025 10:00 AM AMBULATORY - PSYCHIATRY [facility] [place] [facility] Mar 23, 2025 11:00 AM AMBULATORY - PSYCHIATRY [facility] [place] [facility] Mar 24, 2025 09:00 AM AMBULATORY - PSYCHIATRY [facility] [place] [facility] Mar 27, 2025 09:00 AM AMBULATORY - PSYCHIATRY [facility] [place] [facility] Mar 27, 2025 10:00 AM AMBULATORY - PSYCHIATRY [facility] [place] [facility] Mar 27, 2025 11:00 AM AMBULATORY - PSYCHIATRY [facility] [place] [facility] March 30, 2025 09:00 AM AMBULATORY - PSYCHIATRY [facility] [place] [facility] Advance Directives: All historical and current Section Date Range: From patient's date of to the date document was created. This section includes ALL of a patient's completed or amended [place] Advance and Rescinded Directives. The entries below indicate that a directive exists for the patient, but an actual copy is not included with this document. The data comes from all [place] facilities. Date Advance Directives Provider Source Dec 13, 2024 ADVANCE DIRECTIVE JEFFREY FLORES [facility] Encounter Notes: All associated encounter notes This section contains the clinical notes associated to the Encounter. Date/Time Encounter Note(s) Provider Source Dec 27, 2024 02:23 PM CLERICAL NOTE: LOCAL TITLE: APPOINTMENT NO SHOW STANDARD TITLE: CLERICAL NOTE DATE OF NOTE: DEC 27, 2024@14:23 ENTRY DATE: DEC 27, 2024@14:23:36 AUTHOR: DAVID PETERSON COSIGNER: KAYLA HUYNH URGENCY: STATUS: COMPLETED Patient Name: STIVEN TELLES Patient SSN: [id number] Date and time of Appointment No show : 12/27/24 14:00 PATIENT PHONE - [phone] PHONE NUMBER [CELLULAR] - [phone] Patient's medical record was reviewed. Follow-up actions were determined and initiated: Please check/complete as applies: [X]Telephoned Directly [ ]Re-scheduled for next available appt [X]Sent a N0-show letter ( must call for appointment) [ ]Other (Emergent/Overbook, etc.): Additional Comments: None Future Clinic Visits 12/12/2025 11:00 CWM/SO/PACT 10 /evy/ DAVID PETERSON WIRELESS NETWORK ENGINEER Signed: 12/27/2024 14:23 /evy/ KAYLA HUYNH [facility] Lithograph Printer Mental Health Cosigned: 12/27/2024 15:08 DAVID PETERSON [place]
--- OUTSIDE RECORDS SUMMARY | 2025-04-04 13:33 | XMS_ITS | Clinical Summary ---
Author Organization [facility] Address [address] [place] [address] Care Team Providers Care Machining Supervisor Name Role Phone Елена Sharp MD Primary Care Provider [phone] Allergies No known active allergies Medications Medication Sig Dispensed Refills Start Date End Date Status varenicline (CHANTIX STARTING MONTH ) 0.5 MG X 11 & 1 MG X 42 tablet Take 1 0.5mg tab orally 1x daily x 3d, then 1 0.5mg tab 2x daily x 4d, then 1 1mg tab 2x daily. 53 tablet 0 07/17/2020 Active varenicline (CHANTIX CONTINUING MONTH ) 1 MG tablet Take 1 Tab by mouth 2 times daily. To start after completes continuing month. 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 Immunizations Name Administration Dates Next Due TD (STATE SUPPLIED FOR ADULTS AND CHILDREN) 02/28 Family History Medical History Relation Name Comments No Known Problems Brother Cholesterol Level Father Depression/Anxiety Father tobacco use Father No Known Problems Maternal Grandfather No Known Problems Maternal Grandmother Diabetes Mother No Known Problems Paternal Grandfather No Known Problems Paternal Grandmother Seizures Sister 1 No Known Problems Sister 2 Relation Name Status Comments Brother Alive Father Alive Maternal Grandfather Maternal Grandmother Mother Paternal Grandfather Paternal Grandmother Sister 1 Alive Sister 2 Alive Social History Tobacco Use Types Packs/Day Years Used Date Smoking Tobacco: Every Day Cigarettes Smokeless Tobacco: Never Tobacco Cessation:Ready to Q uit: Yes; Counseling Given: Yes Alcohol Use Standard Drinks/Week Comments Yes 0 (1 standard drink = 0.6 oz pure alcohol) 6-12 beers a few times a week, has had 2 DUIs Sex Assigned at Date Recorded Not on file Last Filed Vital Signs Vital Sign Reading Time Taken Comments Blood Pressure 114/70 03/16/2018 9:18 AM EDT Pulse 80 03/16/2018 9:18 AM EDT Temperature 36.9 ??C (98.4 ??F) 03/16/2018 9:18 AM ED T Respiratory Rate 16 03/16/2018 9:18 AM EDT Oxygen Saturation - - Inhaled Oxygen Concentration - - Weight 89.4 kg (197 lb) 03/16/2018 9:18 AM EDT Height 172.1 cm (5' 7.75 ) 03/16/2018 9:18 AM ED T Body Mass Index 30.18 03/16/2018 9:18 AM EDT Plan of Treatment Health Maintenance Due Date Last Done Comments Covid-19 Vaccine (#1) 02/17/1976 DTAP/TDAP/TD (1 - Tdap) 03/17/2018 03/16/2018 BASELINE HEALTH EXAM 40-64 03/16/2020 03/16/2018, TOBACCO CHECK/ADVISE 07/17/2022 07/17/2020, 07/16/2020, 08/24/2018, Additional history exists CHOLESTEROL SCREENING 03/16/2023 03/16/2018 BMI CHECK/ADVISE 11/30/2024 03/16/2018 INFLUENZA (Season Ended) 2025 PNEUMOCOCCAL VACCINE FOR HIG H RISK PATIENTS (#1) 2040 Care Teams Machining Supervisor Relationship Specialty Start Date End Date Елена Sharp MD [address] [place] [id number] PCP - General Internal Medicine 02/15/18
[2025-04-04 17:30] LABS: Alkaline Phosphatase 57 U/L (39-117)
== END 2025-04-04 12:00 | disposition home or self-care (01) ==
LOC: HO.LNP 11:59
PROVIDERS: Visit Provider Internal Medicine
DX: Z00.00 Encounter for general adult medical examination without abnormal findings (principal); E78.00 Pure hypercholesterolemia, unspecified; D72.829 Elevated white blood cell count, unspecified; Z12.5 Encounter for screening for malignant neoplasm of prostate
CPT/HCPCS: 80053; 80061; 81001; 84153; 85025

== ENCOUNTER 2025-09-27 08:49 | Outpatient (AMB) | payer BC, SELFPAY ==
[2025-09-27 08:59] VITALS: BMI 28.1
--- NOTE | 2025-09-27 08:59 | A.OFFVIS_ITS ---
Vital Signs 09/27/25 08:59 Height 5 ft 8 in Weight 185 lb BMI 28.1 Intake Visit Reasons: Left Toe Pain Intake Note: vivienne is a 50 year old male who presents today as a new patient for an evaluation of his left pinky toe pain. Pt states he had stubbed his toe on 09/20/25 and since then on 09/25/25 the nail had fallen off. Patient reports he has athlete foot andhas tried OTC medication for his athlete foot and fund no relief. Patient has concerns of possible infection occurring since the nail is gone. Allergies bee pollen (BEE STINGS) Allergy (Unknown, Verified 09/27/25 08:59) HIVES HPI HPI Left Toe Pain: Details: 50-year-old male with no past medical history presents with fungal infection to his feet. Patient states he noticed it since this past summer. He complains of burning and itchiness to his feet. He has been treating it with [id number] which has helped however the infections have returns sporadically. Also complains of discolored toenails. PFSH Medical History High cholesterol History of alcohol abuse Smoker Surgical History H/O colonoscopy Family History Sister Epilepsy Social History (Updated 07/27/23 @ 10:23 by Kelsey Singleton [facility]) Alcohol intake: former Patient Tobacco Use Status: Current everyday Tobacco user Cigarettes Per Day: 10 Substance Use Type: Marijuana Current occupational status: employed Current occupation: [employer] Review of Systems Const All systems reviewed & are unremarkable except as noted in HPI and below Physical Exam Vital Signs: BMI result Body Mass Index 28.1 Extrem Other: *Bilateral Lower Extremity Focused Exam Vascular: DP/PT 2/4, CFT less than 3 seconds to all digits, temperature gradient warm to cool. No pedal edema. Derm: Interdigital macerations with openings to the 1st 3rd and 4th interspace left foot. Interdigital macerations right foot 1 through 4, no fissuring or opening. No erythema or drainage. Wood's lamp negative for fluorescence. Superficial dorsal granular wound dorsal left 5th digit nail bed. no remaining nail. Thickened elongated dystrophic discolored toenails x 10 with subungual debris. Neuro: protective sensation grossly intact to bilateral lower extremities. MSK: No pain on palpation of the interspace fissures. Assessment & Plan Assessment & Plan (1) Tinea unguium: Code(s): B35.1 - Tinea unguium Category: Medical Plan: * Nail biopsy performed of left hallux nail. * Discussed treatment options including topical treatment versus oral antifungal medications. * Explained that oral antifungals such as terbinafine (Lamisil) may cause gastrointestinal upset, headache, rash, taste disturbances, and hepatotoxicity. Baseline and monthly liver function monitoring is recommended during therapy. Patients should be advised to report symptoms such as jaundice, dark urine, or persistent nausea. * Patient was counseled on the importance of anti-fungal foot hygiene, including daily washing and thorough drying of feet, regular changing of socks, and use of breathable footwear. Recommended antifungal sprays shoes. Education provided on keeping toenails trimmed and clean to reduce risk of fungal infections. Preventive strategies discussed to minimize recurrence of fungal infections. * Will prescribe topical based on biopsy findings. (2) Tinea pedis: Code(s): B35.3 - Tinea pedis Category: Medical Qualifiers: Laterality: bilateral Qualified Code(s): B35.3 - Tinea pedis Plan: * Rx Clotrimazole-betamethasone ointment * Instructed patient to apply topical anti-fungal spray in his shoes. * Eduated on anti-fungal hygeine. * Follow up in 3 weeks. Orders: Orders Fungus Cult Hair/Skin/Nail Today B35.3 - Tinea pedis Surgical Today B35.1 - Tinea unguium Medications: New clotrimazole-betamethasone 1-0.05 % 1 appl topical BID 45 grams 3RF tinea pedis 4 weeks B35.3 - Tinea pedis Coding Level of Care Code New Pt Level 4 (82572) Diagnoses Tinea unguium B35.1 Tinea pedis of both feet B35.3 Laterality: bilateral Time Spent (min) 35
== END 2025-09-27 09:25 | disposition home or self-care (01) ==
PROVIDERS: PCP Internal Medicine; Visit Provider Student in an Organized Health Care Education/Training Program
DX: B35.1 Tinea unguium (principal); B35.3 Tinea pedis
CPT/HCPCS: 99204

== ENCOUNTER 2025-09-27 08:49 | Outpatient (REF) | payer BC, SELFPAY ==
--- OUTSIDE RECORDS SUMMARY | 2024-03-28 03:15 | XMS_ITS ---
Author Organization Terrell Lorenz MD Address [address] [place], [place] [id number] Care Team Providers Care Tilt Tray Driver Name Role Phone Terrell Lorenz Primary Care Provider Results Component Value Reference Range Notes Complete Blood Count Auto Di ff Reviewed date:03/28/2024 12:25:35 PM Interpretation: Performing Lab:[facility], [address] [place] [id number] Notes/Report: White Blood Count 13.0 4.8-10.8 X10*3/uL Red Blood Count 4.53 4.60-5.80 X10*6/uL Hemoglobin 14.4 14.0-18.0 g/dl Hematocrit 42.6 42.0-52.0 % Mean Corpuscular Volume 94.0 80.0-98.0 fL Mean Corpuscular Hemoglobin 31.8 27.0-33.0 pg Mean Corpuscular HGB Conc 33.8 31.0-36.0 g/dl Red Cell Distribution Width 13.0 11.0-16.0 % Platelet Count 355 160-400 X10*3/uL Mean Platelet Volume 10.5 9.4-12.4 fL Neutrophils Percent Auto 65.9 45-73 % Imm Gran Pct Auto 0.4 0.0-0.4 % Lymphocytes Percent Auto 22.6 20-40 % Monocytes Percent Auto 6.8 2-11 % Eosinophils Percent Auto 3.1 0-4 % Basophils Percent Auto 1.2 0-2 % NRBC Pct Auto 0.0 0.0-0.2 /100WBC Neutrophils Absolute Auto 8.6 2.0-8.3 x10*3/u L Imm Gran Abs Auto 0.05 0.00-0.03 X10*3/uL Lymphocytes Absolute Auto 2.9 1.2-4.9 X10*3/u L Monocytes Absolute Auto 0.9 0.1-1.2 X10*3/uL Eosinophils Absolute Auto 0.4 0.0-0.4 X10*3/u L Basophils Absolute Auto 0.2 0.0-0.2 X10*3/uL NRBC Abs Auto 0.000 0.0-0.012 X10*3/uL Comprehensive [place]. Panel Fa st Reviewed date:03/28/2024 04:57:13 PM Interpretation: Performing Lab:[address] [phone] Notes/Report: Sodium 139 135-145 mmol/L Potassium 4.0 3.3-5.1 mmol/L Chloride 104 96-108 mmol/L Carbon Dioxide 28 22-29 mmol/L Anion Gap 11 12-20 Blood Urea Nitrogen 15 9-16 mg/dL Creatinine 0.90 0.5-1.4 mg/dL Estimated Glomerular Filt Rate > 60 NOTE: For -[place] individuals, multiply the result by 1.210. Chronic Kidney Disease: Estimated GFR < 60 mL/min/1.73m2 Severe Kidney Disease: Estimated GFR < 15 mL/min/1.73m2 Glucose Fasting 88 60-99 mg/dL Calcium 9.5 8.4-10.2 mg/dL Bilirubin Total 0.7 0.0-1.0 mg/dL Aspartate Amino Transferase 25 5-37 U/L Alanine Aminotransferase 15 0-40 U/L Total Protein 7.5 6.5-8.0 g/dL Albumin Level 4.3 3.5-5.0 g/dL Alkaline Phosphatase 55 39-117 U/L Lipid Panel Reviewed date:03/28/2024 02:29:44 PM Interpretation: Performing Lab:[address] [phone] Notes/Report: Triglycerides 188 <150 mg/dL Desirable Triglyceride: less than 150 mg/dL Borderline High Triglyceride 150-199 mg/dL High Triglyceride: 200-499 mg/dL Very High Triglyceride: greater than or equal to 5OO mg/dL Cholesterol 246 <200 mg/dL Desirable Cholesterol: less than 200 mg/dL Borderline High Cholesterol: 200-239 mg/dL High Cholesterol: greater than 239 mg/dL LDL Cholesterol Calculated 145 <100 mg/dL Desirable LDL: less than 100 mg/dL Near Optimal/Above Optimal LDL: 110-129 mg/dL Borderline High LDL: 130-159 mg/dL High LDL: 160-189 mg/dL Very High LDL: greater than or equal to 190 mg/dL HDL Cholesterol 64 >40 mg/dL Desirable HDL: greater than 40 mg/dL Note: This HDL assay may give artificially low results in patients with liver disease. PSA,Total (Free>4and<10) Reviewed date:03/28/2024 01:48:57 PM Interpretation: Performing Lab:[address] [phone] Notes/Report: PSA,Total (Free>4and<10) 0.42 0.00-4.00 ng/mL A Free PSA was not performed: The percentage of Free PSA can be used to enhance the differentiation of prostate cancer from benign prostatic disease in subjects whose PSA levels are between 4.0 and 10.0 ng/mL. For subjects whose PSA levels are below 4.0 or above 10.0 ng/mL, the risk of prostate cancer is determined on the basis of the PSA alone. Therefore the % Free PSA is recommended only for those subjects whose PSA levels are between 4.0 and 10.0 ng/mL. PSA methodology: Ott Alinity i Chemiluminescent Microparticle Immunoassay (CMIA) UA ClnCatch+Micro w/rflx Cul t Reviewed date:03/28/2024 04:57:34 PM Interpretation: Performing Lab:[address] [id number] Notes/Report: Urine, Clean Catch Color Urine Yellow Appearance Urine Clear PH 5.5 5.0-9.0 Glucose Urine UA Negative Negative mg/dL Urine Blood Negative Negative Specific [place] - Urine 1.010 1.005-1.025 Urine Protein Negative Neg-Trace mg/dL Urine Ketones Negative Negative mg/dL Nitrite Urine Negative Negative Leukocyte Esterase Urine Negative Negative RBC Urine 0-2 0-2 /HPF WBC Urine 0-5 0-5 /HPF Squamous Epithelial Cell Urine 0-2 0-2 /HPF Bacteria Urine None Seen None Seen Hyaline Casts Urine 0-2 0-2 /LPF REASON FOR VISIT yearly labs Encounters Encounter Location Date Provider Diagnosis Terrell Lorenz MD [address] [place] [address] Drive [address] [place], [place] [id number] 03/28/2024 Terrell Lorenz Blood tests for routine general physical examination Z00.00 ; Pure hypercholesterolemia , unspecified E78.00 and Leukocytosis, unspecified type D72.829 Assessments Encounter Date Diagnosis (ICD Code) Assessment Notes Treatment Notes Treatment Clinical Notes Section Notes 03/28/2024 Blood tests for routine general physical examination (ICD-10 - Z00.00) 03/28/2024 Pure hypercholesterol emia, unspecified (ICD-10 - E78.00) 03/28/2024 Leukocytosis, unspecified type (ICD-10 - D72.829) Plan Of Treatment No Information Progress Notes * KOKIAmrikDOB: 5 (50 yo M)Acc No.[id number]:03/28/2024 Progress Note Patient: Amrik HIGGINS Provider: Enrico Lorenz MD :1975 A ge:48 Y S ex:Male Date:03/28/2024 Address:[address] [place], [place] [id number] Subjective: * Chief Complaints: * 1 . Yearly labs. * Medical History: Objective: * Vitals: Assessment: * Assessment: 1. B lood tests for routine general physical examination - Z00.00 (Primary) 2 .?Pure hypercholesterolemia, unspecified - E78.00 3 . L eukocytosis, unspecified type - D72.829 Plan: * Treatment: 2. P ure hypercholesterolemia, unspecified L AB: Complete Blood Count Auto Diff (Collection Date & Time - 03/28/2024 07:15 AM) L AB: Comprehensive [place]. Panel Fast (Collection Date & Time - 03/28/2024 07:15 AM) L AB: Lipid Panel (Collection Date & Time - 03/28/2024 07:15 AM) L AB: PSA,Total (Free>4and<10) (Collection Date & Time - 03/28/2024 07:15 AM) L AB: UA ClnCatch+Micro w/rflx Cult (Collection Date & Time - 03/28/2024 07:15 AM) 3. L eukocytosis, unspecified type L AB: Complete Blood Count Auto Diff (Collection Date & Time - 03/28/2024 07:15 AM) L AB: Comprehensive [place]. Panel Fast (Collection Date & Time - 03/28/2024 07:15 AM) L AB: Lipid Panel (Collection Date & Time - 03/28/2024 07:15 AM) L AB: PSA,Total (Free>4and<10) (Collection Date & Time - 03/28/2024 07:15 AM) L AB: UA ClnCatch+Micro w/rflx Cult (Collection Date & Time - 03/28/2024 07:15 AM) * Procedure Codes: 3 6415 VENIPUNCT, ROUTINE* * * The named appointment provid er may or may not be the originator of this progress note, and it is not deemed complete until electronically signed by the appointment provider. Sign off status: Pending * Provider: Enrico Lorenz MD Date: 0 03/28/2024 Generated for Jorge calixto/Isai/Fridaitting on: 1 11:18 AM EDT
--- OUTSIDE RECORDS SUMMARY | 2024-04-04 04:30 | XMS_ITS ---
Author Organization Terrell Lorenz MD Address [address] [place], [place] [id number] Care Team Providers Care Order Entry Technician Name Role Phone Terrell Lorenz Primary Care Provider Allergies No Known Allergies Results Component Value Reference Range Notes Occult Blood, Stool, Guaiac Reviewed date:04/04/2024 10:41:14 AM Interpretation:Negative Performing Lab: Notes/Report: Negative Occult Blood, Stool, Guaiac Neg REASON FOR VISIT annual visit, NO Covid symptoms Medications Medication SIG (Take, Route, Frequency, Duration) Notes Start Date End Date Status Chantix Continuing Month Benji 1 MG as directed Orally Not-Takin g Ibuprofen 800 MG take 1 tablet by amie th three times a day with food or milk as needed for 30 days Orally Three times a day for 90 days Active Tadalafil 20 MG 1/2 tablet as needed Orally Once a day as needed for 30 day(s) 01/06/2023 Not-Taking Social History Tobacco Use: Social History Observation Description Date Details (start date - stop date) Current Smoker NA - NA Tobacco Use/Smoking Question Answer Notes Patient is a current smoker How often do you smoke cigarettes? every day How many cigarettes a day do you smoke? 11-20 How soon after you wake up d o you smoke your first cigarette? 6-30 minutes Are you interested in quitting? Thinking about q uitting Additional Findings: Tobacco User Emelina t cigarette smoker, not currently using another form of tobacco Section Notes: Stopped drinking 3 years ago Vital Signs Blood pressure systolic 108 mm Hg 04/04/20 24 Blood pressure diastolic 66 mm Hg 05/06/2 024 Height 69 in 04/04/2024 Weight 176 lbs 04/04/2024 BMI 25.99 kg/m2 04/04/2024 weight is down 6 pounds [facility] 8 Encounters Encounter Location Date Provider Diagnosis Terrell Lorenz MD [address] [place] [address] Drive [address] [place], [place] [id number] 04/04/2024 Terrell Lorenz Smoker F17.200 ; Adult general medical examination Z00.00 ; Pure hypercholesterolemia , unspecified E78.00 ; Leukocytosis, unspecified type D72.829 ; History of alcohol abuse F10.11 ; Encounter for screening colonoscopy Z12.11 and Depression screening Z13.31 Assessments Encounter Date Diagnosis (ICD Code) Assessment Notes Treatment Notes Treatment Clinical Notes Section Notes 04/04/2024 Smoker (ICD-10 - F17.200) says he plans on quitting 04/04/2024 Adult general medical examination (ICD-10 - Z00.00) labs reviewed and discussed with patient 04/04/2024 Pure hypercholesterol emia, unspecified (ICD-10 - E78.00) not high enough to treat, will continue to monitor 04/04/2024 Leukocytosis, unspecified type (ICD-10 - D72.829) is stable. all his past ones were similar 04/04/2024 History of alcohol abuse (ICD-10 - F10.11) 4 years without drinking 04/04/2024 Encounter for screening colonoscopy (ICD-10 - Z12.11) guaiac negative 04/04/2024 Depression screening (ICD-10 - Z13.31) negative screen Plan Of Treatment Medication Medication Name Sig Start Date Stop Date Notes Ibuprofen 800 MG take 1 tablet by amie th three times a day with food or milk as needed for 30 days Orally Three times a day for 90 days Treatment Notes Assessment Notes Smoker says he plans on manisha tting Adult general medical examination labs r eviewed and discussed with patient Pure hypercholesterolemia, unspecified n ot high enough to treat, will continue to monitor Leukocytosis, unspecified type is stable . all his past ones were similar History of alcohol abuse 4 years without drinking Encounter for screening colonoscopy guai ac negative Depression screening negative screen Next Appt Details Follow Up: 1 Year, Reason: Progress Notes * Tab WILSON: 5 (48 yo M)Acc No.[id number]:04/04/2024 Progress Notes Patient: Amrik Dunbar Provider: Enrico Lorenz MD :1975 A ge:48 Y S ex:Male Date:04/04/2024 Address:[address] [place], [place] [address] [id number] Subjective: * Chief Complaints: * A nnual visitNO Covid symptoms * HPI: D epression Screening: PHQ-9 L ittle interest or pleasure in doing things N ot at all, F eeling down, depressed, or hopeless N ot at all, T rouble falling or staying asleep, or sleeping too much N ot at all, F eeling tired or having little energy N ot at all, P oor appetite or overeating N ot at all, F eeling bad about yourself or that you are a failure, or have let yourself or your family down N ot at all, T rouble concentrating on things, such as reading the newspaper or watching television N ot at all, M oving or speaking so slowly that other people could have noticed; or the opposite, being so fidgety or restless that you have been moving around a lot more than usual N ot at all, T houghts that you would be better off or of hurting yourself in some way N ot at all, T otal Score 0 . I nterpretation and Intervention D epression Screening Findings N egative, F ollow-Up for Depression : review of PHQ-9 found negative result, no follow-up needed. C ommunication Needs: Communication Needs D oes the patient have a hearing impairment N o, D oes the patient have a vision impairment? Y es, I f yes, what is the vision impairment? G lasses, D oes the patient have a cognition impairment? N o. S CARLITO Questions: SDOH Questions I n the past year have you been worried about losing housing? N o, I n the past year have you or any family members you live with been unable to get any of the following when it was really needed? Check all that apply: N one. S ymptom(s): patient is a 48 yo male here for annual visit with review of recent labs and follow up of chronic issues, smoking pot a lot. half pack cigarettes per day. * ROS: G eneral/Constitutional: Patient denies f atigue , headache. C hange in appetite?denies. C hills d enies. F ever d enies. O phthalmologic: Blurred vision d enies. D ischarge d enies. P ain d enies. E NT: Patient denies d ecreased sense of smell , any loss of taste , sore throat. D ecreased hearing d enies. S ore throat d enies. S wollen glands d enies. E ndocrine: Cold intolerance d enies. E xcessive thirst d enies. H eat intolerance d enies. W eight loss d enies. R espiratory: Cough d enies. S hortness of breath at rest d enies. S hortness of breath with exertion d enies. W heezing d enies. C ardiovascular: Chest pain at rest d enies. C hest pain with exertion?denies. I rregular heartbeat d enies. S hortness of breath d enies. ? G astrointestinal: Abdominal pain d enies. C hange in bowel habits d enies. D iarrhea d enies. N ausea d enies. R ectal bleeding o ccasionall drops of blood in the bowl after bm. V omiting d enies . G enitourinary: Blood in urine d enies. D ifficulty urinating d enies. F requent urination d enies. M usculoskeletal: Patient denies m uscle aches. P ainful joints d enies. W eakness d enies. P eripheral Vascular: Patient denies r ed and blue toes. S kin: Dry skin d enies. I tching d enies. D enies?Mole(s), changes in moles, new moles or any lesions of concern. D enies P hotosensitivity. R jc d enies. N eurologic: Dizziness d enies. F ainting d enies. H eadache?denies. * Medical History: * Surgical History: * Hospitalization/Major Diagno stic Procedure: * Family History: F ather: alive 72 yrs, diagnosed with Alzheimer disease. M other: 65 yrs, diagnosed with Diabetes. 2 brother(s) , 1 sister(s) . 2 son(s) . . Father Alzheimer's Mother cancer father alcoholic, No pertinent family medical history, Denies mental health/substance abuse family history. * Social History: T obacco Use: T obacco Use/Smoking P atient is a c urrent smoker, H ow often do you smoke cigarettes? e very day, H ow many cigarettes a day do you smoke? 1 1-20, H ow soon after you wake up do you smoke your first cigarette? 6 -30 minutes, A re you interested in quitting? T hinking about quitting, A dditional Findings: Tobacco User C urrent cigarette smoker, not currently using another form of tobacco. M iscellaneous: C affeine: yes, frequency:, 1-2 cups per day. Children: yes. no Exercise. no Home smoke detector use. Housing: owning. Living with: spouse, family. Marital status: . Pets: none, 3 dogs 1 guinea pig. no Travel outside of the [place]. S topped drinking 3 years ago. * Medications: T akingIbuprofen 800 MG Tablet TAKE 1 TABLET BY MOUTH THREE TIMES A DAY WITH FOOD OR MILK NEEDED FOR 30 DAYS Taking Ibuprofen 800 MG Tablet TAKE 1 TABLET BY MOUTH THREE TIMES A DAY WITH FOOD OR MILK NEEDED FOR 30 DAYS Not- Taking/PRNTadalafil 20 MG Tablet 1/2 tablet as needed Orally Once a day as neededChantix Continuing Month Benji 1 MG Tablet as directed Orally Medication List reviewed and reconciled with the patientNot-Taking/PRN Tadalafil 20 MG Tablet 1/2 tablet as needed Orally Once a day as neededNot-Taking/PRN Chantix Continuing Month Benji 1 MG Tablet as directed Orally Medication List reviewed and reconciled with the patient * Allergies: N .K.D.A.yes[Allergies Verified] Objective: * Vitals: H t: 69, Wt:176, BMI:25.99, BP:108/66 weight is down 6 pounds since 06-30-23. * P ast Orders: L ab:Complete Blood Count Auto Diff (Order Date - 03/28/2024) (Collection Date - 03/28/2024) Value Reference Range White Blood Count 13.0 H 4.8-10.8 - X10*3/uL Red Blood Count 4.53 L 4.60-5.80 - X10*6/uL Hemoglobin 14.4 14.0-18.0 - g/dl Hematocrit 42.6 42.0-52.0 - % Mean Corpuscular Volume 94.0 80.0-98.0 - fL Mean Corpuscular Hemoglobin 31.8 27.0-33.0 - pg Mean Corpuscular HGB Conc 33.8 31.0-36.0 - g/ dl Red Cell Distribution Width 13.0 11.0-16.0 - % Platelet Count 355 160-400 - X10*3/uL Mean Platelet Volume 10.5 9.4-12.4 - fL Neutrophils Percent Auto 65.9 45-73 - % Imm Gran Pct Auto 0.4 0.0-0.4 - % Lymphocytes Percent Auto 22.6 20-40 - % Monocytes Percent Auto 6.8 2-11 - % Eosinophils Percent Auto 3.1 0-4 - % Basophils Percent Auto 1.2 0-2 - % NRBC Pct Auto 0.0 0.0-0.2 - /100WBC Neutrophils Absolute Auto 8.6 H 2.0-8.3 - x10* 3/uL Imm Gran Abs Auto 0.05 H 0.00-0.03 - X10*3/uL Lymphocytes Absolute Auto 2.9 1.2-4.9 - X10* 3/uL Monocytes Absolute Auto 0.9 0.1-1.2 - X10*3/ uL Eosinophils Absolute Auto 0.4 0.0-0.4 - X10* 3/uL Basophils Absolute Auto 0.2 0.0-0.2 - X10*3/ uL NRBC Abs Auto 0.000 0.0-0.012 - X10*3/uL L ab:PSA,Total (Free>4and<10) (Order Date - 03/28/2024) (Collection Date - 03/28/2024) Value Reference Range PSA,Total (Free>4and<10) 0.42 0.00-4.00 - ng/ mL L ab:UA ClnCatch+Micro w/rflx Cult (Order Date - 03/28/2024) (Collection Date - 03/28/2024) Value Reference Range Color Urine Yellow - Appearance Urine Clear - PH 5.5 5.0-9.0 - Glucose Urine UA Negative Negative - mg/dL Urine Blood Negative Negative - Specific [place] - Urine 1.010 1.005-1.025 - Urine Protein Negative Neg-Trace - mg/dL Urine Ketones Negative Negative - mg/dL Nitrite Urine Negative Negative - Leukocyte Esterase Urine Negative Negative - RBC Urine 0-2 0-2 - /HPF WBC Urine 0-5 0-5 - /HPF Squamous Epithelial Cell Urine 0-2 0-2 - /HP F Bacteria Urine None Seen None Seen - Hyaline Casts Urine 0-2 0-2 - /LPF L ab:Comprehensive [place]. Panel Fast (Order Date - 03/28/2024) (Collection Date - 03/28/2024) Value Reference Range Sodium 139 135-145 - mmol/L Bilirubin Total 0.7 0.0-1.0 - mg/dL Aspartate Amino Transferase 25 5-37 - U/L Alanine Aminotransferase 15 0-40 - U/L Total Protein 7.5 6.5-8.0 - g/dL Albumin Level 4.3 3.5-5.0 - g/dL Alkaline Phosphatase 55 39-117 - U/L Potassium 4.0 3.3-5.1 - mmol/L Chloride 104 96-108 - mmol/L Carbon Dioxide 28 22-29 - mmol/L Anion Gap 11 L 12-20 - Blood Urea Nitrogen 15 9-16 - mg/dL Creatinine 0.90 0.5-1.4 - mg/dL Estimated Glomerular Filt Rate > 60 - Glucose Fasting 88 60-99 - mg/dL Calcium 9.5 8.4-10.2 - mg/dL * Examination: G eneral Examination: GENERAL APPEARANCE: w ell developed, well nourished, in no acute distress. HEAD: n ormocephalic, atraumatic. EYES: p upils equal, round, reactive to light and accommodation, sclera non-icteric. EARS: n ormal. ORAL CAVITY: m ucosa moist. THROAT: c lear. NECK/THYROID: n viviane supple, full range of motion, no cervical lymphadenopathy, no bruits. SKIN: w arm and dry, no suspicious lesions. HEART: r egular rate and rhythm, S1, S2 normal, no murmurs.? LUNGS: c lear to auscultation bilaterally. ABDOMEN: s oft, nontender, nondistended, bowel sounds present, normal, no organomegaly , no masses palpable. RECTAL EXAM: n ormal tone, no external hemorrhoids, no masses palpable, prostate normal, stool guaiac negative. MALE GENITOURINARY: u ncircumcised, no penile lesions or discharge, testes descended bilaterally, no testicular mass. EXTREMITIES: n o clubbing, cyanosis, or edema. NEUROLOGIC: n onfocal, motor strength normal upper and lower extremities, sensory exam intact. Assessment: * Assessment: 1. A dult general medical examination - Z00.00 (Primary) 2 . S johnker - F17.200 3 .?Pure hypercholesterolemia, unspecified - E78.00 4 . L eukocytosis, unspecified type - D72.829 5 . H istory of alcohol abuse - F10.11 6 . E ncounter for screening colonoscopy - Z12.11 7 . D epression screening - Z13.31 Plan: * Treatment: 2. S oswaldo Notes: says he plans on quitting. 3. P ure hypercholesterolemia, unspecified Notes: not high enough to treat, will continue to monitor. 4. L eukocytosis, unspecified type Notes: is stable. all his past ones were similar. 5. H istory of alcohol abuse Notes: 4 years without drinking. 6. E ncounter for screening colonoscopy L AB: Occult Blood, Stool, Guaiac N egative Value Reference Range O ccult Blood, Stool, Guaiac Neg Notes: guaiac negative.??7.?Depression screening? Notes: negative screen.??8.?Others? Refill Ibuprofen Tablet, 800 MG, take 1 tablet by mouth three times a day with food or milk as needed for 30 days, Orally, Three times a day, 90 days, 270, Refills 2.?? * Procedure Codes: 8 2270 TEST FOR BLOOD, FECES * Preventive Medicine: Counseling: S jenaro P atient counseled on the dangers of tobacco use and urged to quit. 0 04/04/2024, P atient Lifestyle Goals P atient is in process of thinking about quitting and will discuss at future appointment, T reatment Goals S uggested patient start by cutting down one cigarette per week, S elf-Managment Goals S uggested patient speak with family/friends about quitting and how they can help, B arriers p atient needs to be fully committed to quitting, S et a Quit Date s uggested patient set a date in the future to stop smoking. * Follow Up: 1 Year * * Sign off status: Completed true * Provider: Enrico Lorenz MD Date: 0 04/04/2024 Generated for Jorge calixto/Isai/Rafitaransmitting on: 1 11:18 AM EDT History and Physical Notes * HPI (History of Present Illness) Category Sub-Category Detail Notes Category Not es Symptom(s) patient is a 48 yo male here for annual visit with review of recent labs and follow up of chronic issues, smoking pot a lot. half pack cigarettes per day Depression Screening PHQ-9 Little inte rest or pleasure in doing things: Not at all Feeling down, depressed, or hopeless: No t at all Trouble falling or staying asleep, or sl eeping too much: Not at all Feeling tired or having little energy: N ot at all Poor appetite or overeating: Not at all Feeling bad about yourself o r that you are a failure, or have let yourself or your family down: Not at all Trouble concentrating on thi ngs, such as reading the newspaper or watching television: Not at all Moving or speaking so slowly that other people could have noticed; or the opposite, being so fidgety or restless that you have been moving around a lot more than usual: Not at all Thoughts that you would be b leonor off or of hurting yourself in some way: Not at all Total Score: 0 Interpretation and Intervention Depression Slava cameron Findings: Negative Follow-Up for Depression: : review of PH Q-9 found negative result, no follow-up needed SDOH Questions SDOH Questions In the past year have you been worried about losing housing?: No In the past year have you or any family members you live with been unable to get any of the following when it was really needed? Check all that apply:: None Communication Needs Communication Needs Does the patient have a hearing impairment: No Does the patient have a vision impairmen t?: Yes If yes, what is the vision impairment?: Glasses Does the patient have a cognition impair ment?: No Examination Category Sub-Category Detail Notes Category Not es General Examination GENERAL APPEARANCE: well dev eloped, well nourished, in no acute distress HEAD: normocephalic, atrau matic EYES: pupils equal, round, reactive to light and accommodation, sclera non-icteric EARS: normal THROAT: clear NECK/THYROID: neck supple, full ra nge of motion, no cervical lymphadenopathy, no bruits HEART: regular rate and rhy thm, S1, S2 normal, no murmurs LUNGS: clear to auscultatio n bilaterally ABDOMEN: soft, nontender, non distended, bowel sounds present, normal, no organomegaly , no masses palpable NEUROLOGIC: nonfocal, motor stre ngth normal upper and lower extremities, sensory exam intact SKIN: warm and dry, no fatou picious lesions EXTREMITIES: no clubbing, cyanosi s, or edema MALE GENITOURINARY: uncircumcised, no pe nile lesions or discharge, testes descended bilaterally, no testicular mass RECTAL EXAM: normal tone, no exte rnal hemorrhoids, no masses palpable, prostate normal, stool guaiac negative ORAL CAVITY: mucosa moist
--- OUTSIDE RECORDS SUMMARY | 2024-09-30 06:15 | XMS_ITS ---
Author Organization Terrell Lorenz MD Address [address] [place], [place] [phone] Care Team Providers Care Aoc Director Combat Operations Officer Name Role Phone Terrell Lorenz Primary Care Provider [phone] Allergies No Known Allergies REASON FOR VISIT follow up appt from being at [facility] Medications Medication SIG (Take, Route, Frequency, Duration) Notes Start Date End Date Status Lisinopril 10 MG 1 tablet Orally Once a day for 30 day(s) Active Ibuprofen 800 MG take 1 tablet by amie th three times a day with food or milk as needed for 30 days Orally Three times a day for 90 days Active Tadalafil 20 MG 1/2 tablet as needed Orally Once a day as needed for 30 day(s) 01/06/2023 Not-Taking Levothyroxine Sodium 50 MCG 1 tablet in the morning on an empty stomach Orally Once a day for 30 day(s) Active Simvastatin 20 MG 1 tablet in the evening Orally Once a day for 30 day(s) Active Chantix Continuing Month Benji 1 MG as directed Orally Not-Takmeena g Social History Tobacco Use: Social History Observation [...] about q uitting Additional Findings: Tobacco User Curren t cigarette smoker, not currently using another form of tobacco Alcohol Screen Question Answer Notes Did you have a drink containing alcohol in the p ast year? No Points 0 Interpretation Negative Section Notes: Stopped drinking 3 years ago Stopped drinking 06-13-24 Vital Signs Blood pressure systolic 92 mm Hg 09/30/20 Blood pressure diastolic 66 mm Hg 024 Height 69 in 09/30/2024 Weight 209 lbs 09/30/2024 BMI 30.86 kg/m2 09/30/2024 weight is up 33 pounds since 04-04-24 Encounters Encounter Location Date Provider Diagnosis Terrell Lorenz MD [address] [place], [place] [phone] 09/30/2024 Terrell Lorenz History of alcohol abuse F10.11 Assessments Encounter Date Diagnosis (ICD Code) Assessment Notes Treatment Notes Treatment Clinical Notes Section Notes 09/30/2024 History of alcohol abuse (ICD-10 - F10.11) has been in treatment from may to august. have no records of treatment. apperently fighting with his son and started drinking and then got into his truck. police arrested him on the spot. this will be his 4th offence which could put him in fdc. i spoke about staying sober and the need for going to [facility]/ doesn't sound as though there is any out patient therapy from the rehab and he complains that he didn't have much therapy while in the rehab/ seems that he was here to have me fill out his FMAL forms, Total time spent on the date of the encounter is 35 minutes including both face to face time spent and time spent reviewing documentation and counseling the patient. Plan Of Treatment Treatment Notes Assessment Notes History of alcohol abuse has been [facility] to august. have no records of treatment. apperently fighting with his son and started drinking and then got into his truck. police arrested him on the spot. this will be his 4th offence which could put him in fdc. i spoke about staying sober and the need for going to [facility]/ doesn't sound as though there is any out patient therapy from the rehab and he complains that he didn't have much therapy while in the rehab/ seems that he was here to have me fill out his FMAL forms, Total time spent on the date of the encounter is 35 minutes including both face to face time spent and time spent reviewing documentation and counseling the patient. Progress Notes * Tab WILSON: 5 (49 yo M)Acc No.[id number]:09/30/2024 Progress Notes Patient: Amrik Dunbar Provider: Enrico Lorenz MD :1975 A ge:49 Y S ex:Male Date:09/30/2024 Address:[address] [place], [place] [address] [id number] Subjective: * Chief Complaints: * f ollow up appt from being at [facility] * HPI: S ymptom(s): patient is a 49 yo male had been in rehab for alcohol was sectioned 35./ has been sober. going to . * ROS: G eneral/Constitutional: Denies C hills. D enies F atigue. D enies F ever. D enies H eadache. E NT: Patient denies d ecreased sense of smell , any loss of taste , sore throat. D enies S ore throat. R espiratory: Denies C ough. D enies S hortness of breath at rest. D enies S hortness of breath with exertion. G astrointestinal: Denies D iarrhea. D enies N ausea. M usculoskeletal: Patient denies m uscle aches. P eripheral Vascular: Patient denies r ed and blue toes. * Medical History: * Surgical History: * Hospitalization/Major Diagno stic Procedure: * Social History: T obacco Use: T [...] not currently using another form of tobacco. D rugs/Alcohol: A lcohol Screen D id you have a drink containing alcohol in the past year? N o, P oints 0 , I nterpretation N egative. S topped drinking 3 years ago Stopped drinking 06-13-24. * Medications: T akingLevothyroxine Sodium 50 MCG Tablet 1 tablet in the morning on an empty stomach Orally Once a daySimvastatin 20 MG Tablet 1 tablet in the evening Orally Once a dayLisinopril 10 MG Tablet 1 tablet Orally Once a dayIbuprofen 800 MG Tablet take 1 tablet by mouth three times a day with food or milk as needed for 30 days Orally Three times a dayTaking Levothyroxine Sodium 50 MCG Tablet 1 tablet in the morning on an empty stomach Orally Once a dayTaking Simvastatin 20 MG Tablet 1 tablet in the evening Orally Once a dayTaking Lisinopril 10 MG Tablet 1 tablet Orally Once a dayTaking Ibuprofen 800 MG Tablet take 1 tablet by mouth three times a day with food or milk as needed for 30 days Orally Three times a dayNot-Taking/PRNTadalafil 20 MG Tablet 1/2 tablet as needed [...] Verified] Objective: * Vitals: H t: 69, Wt:209, BMI:30.86, BP:92/66 weight is up 33 pounds since 04-04-24. * Examination: G eneral Examination: GENERAL APPEARANCE: a lert, well hydrated, in no distress , male. HEAD: n ormocephalic. SKIN: g ood turgor. HEART: r egular rate and rhythm , no murmurs, rubs, gallops. LUNGS: n o wheezes, rales, rhonchi , good air movement , clear to auscultation bilaterally. Assessment: * Assessment: 1. H istory of alcohol abuse - F10.11 (Primary) Plan: * Treatment: * Procedure Codes: * * Sign off status: Completed true * Provider: Enrico Lorenz MD Date: 11/30/2023 Generated for Jorge calixto/Isai/Fridaitting on: 11:19 AM EDT History and Physical Notes * HPI (History of Present Illness) Category Sub-Category Detail Notes Category Not es Symptom(s) patient is a 49 yo male had been in rehab for alcohol was sectioned 35./ has been sober. going to aa. Examination Category Sub-Category Detail Notes Category Not es General Examination GENERAL APPEARANCE: alert, w ell hydrated, in no distress , male HEAD: normocephalic HEART: regular rate and rhy thm , no murmurs, rubs, gallops LUNGS: no wheezes, rales, r honchi , good air movement , clear to auscultation bilaterally SKIN: good turgor
--- OUTSIDE RECORDS SUMMARY | 2024-09-30 09:22 | XMS_ITS ---
Author Organization Terrell Lorenz MD Address [address] [place] [phone] Care Team Providers Care Coremaking Supervisor Name Role Phone Terrell Lorenz Primary Care Provider [phone] REASON FOR VISIT med update Encounters Encounter Location Date Provider Diagnosis Terrell Lorenz MD [address] [place] [phone] 09/30/2024 Terrell Lorenz Plan Of Treatment No Information Progress Notes * Amrik WILSONDOB: 5 (49 yo M)Acc No.[id number]:09/30/2024 Patient: Amrik Dunbar :1975 A ge:49 Y S ex:Male Address:[address] [place], [address] * true * Date: Generated for Jorge calixto/Isai/eTransmitting on: 11:19 AM EDT
--- OUTSIDE RECORDS SUMMARY | 2024-12-16 07:52 | XMS_ITS ---
Author Organization Terrell Lorenz MD Address [address] [place] [phone] Care Team Providers Care Bus And Sys Integration Senior Manager Name Role Phone Terrell Lorenz Primary Care Provider [facility] Encounters Encounter Location Date Provider Diagnosis Terrell Lorenz MD [address] [place] [phone] 12/16/2024 Terrell Lorenz Plan Of Treatment No Information Progress Notes * Amrik WILSONDOB: 5 (49 yo M)Acc No.[id number]:12/16/2024 Patient: Amrik Dunbar :1975 A ge:49 Y S ex:Male Address:[address] [place], [address] * true * Date: Generated for Jorge calixto/Isai/eTransmitting on: 11:18 AM EDT
--- OUTSIDE RECORDS SUMMARY | 2025-01-10 05:15 | XMS_ITS ---
Author Organization Terrell Lorenz MD Address [address] [place] [phone] Care Team Providers Care Cinder Man Name Role Phone Terrell Lorenz Primary Care Provider Allergies No Known Allergies REASON FOR VISIT Wants to be put on med for alcohol abuse Medications Medication SIG (Take, Route, Frequency, Duration) Notes Start Date End Date Status Levothyroxine Sodium 50 MCG 1 tablet in [...] as needed for 30 day(s) 01/06/2023 Not-Taking Chantix Continuing Month Benji 1 MG as directed Orally Not-Takin g Lisinopril 10 MG 1 tablet Orally Once a day for 30 day(s) Active Encounters Encounter Location Date Provider Diagnosis Terrell Lorenz MD [address] [place], [place] [phone] 01/10/2025 Terrell Lorenz Plan Of Treatment No Information Progress Notes * Amrik WILSONDOB: 5 (50 yo M)Acc No.[id number]:01/10/2025 Progress Notes Patient: Amrik HIGGINS Provider: Enrico Lorenz MD :1975 A ge:49 Y S ex:Male Date:01/10/2025 Address:[address] [id number] Subjective: * Chief Complaints: * 1 . Wants to be put on med for alcohol abuse. * Medical History: W as in [facility] last year for black out from etoh. no alcohol in 6 months, Colonoscopy 2021 repeat in 5 years due to bad prep. * Medications: T aking Levothyroxine Sodium 50 MCG Tablet 1 tablet in the morning on an empty stomach Orally Once a day , Taking Simvastatin 20 MG Tablet 1 tablet in the evening Orally Once a day , Taking Lisinopril 10 MG Tablet 1 tablet Orally Once a day , Taking Ibuprofen 800 MG Tablet take 1 tablet by mouth three times a day with food or milk as needed for 30 days Orally Three times a day , Not-Taking/PRN Tadalafil 20 MG Tablet 1/2 tablet as needed Orally Once a day as needed , Not-Taking/PRN Chantix Continuing Month Benji 1 MG Tablet as directed Orally * Allergies: N .K.D.A. Objective: * Vitals: Assessment: Plan: * Treatment: * * The named appointment provid er may or may not be the originator of this progress note, and it is not deemed complete until electronically signed by the appointment provider. Sign off status: Pending * Provider: Enrico Lorenz MD Date: 0 01/10/2025 Generated for Jorge calixto/Isai/Erica on: 1 11:17 AM EDT
--- OUTSIDE RECORDS SUMMARY | 2025-04-04 03:30 | XMS_ITS ---
Author Organization Terrell Lorenz MD Address [address] [place], [place] [phone] Care Team Providers Care Dispenser Operator Name Role Phone Terrell Lorenz Primary Care Provider [phone] Results Component Value Reference Range Notes Complete Blood Count Auto Di ff Reviewed date:04/04/2025 12:12:11 PM Interpretation: Performing Lab:[facility], [address] [place] [phone] Notes/Report: White Blood Count 13.4 4.8-10.8 X10*3/uL Red Blood Count 4.71 4.60-5.80 X10*6/uL Hemoglobin 14.5 14.0-18.0 g/dl Hematocrit 41.3 42.0-52.0 % Mean Corpuscular Volume 87.7 80.0-98.0 fL Mean Corpuscular Hemoglobin 30.8 27.0-33.0 pg Mean Corpuscular HGB Conc 35.1 31.0-36.0 g/dl Red Cell Distribution Width 13.2 11.0-16.0 % Platelet Count 361 160-400 X10*3/uL Mean Platelet Volume 9.8 9.4-12.4 fL Neutrophils Percent Auto 73.4 45-73 % Imm Gran Pct Auto 0.4 0.0-0.4 % Lymphocytes Percent Auto 16.8 20-40 % Monocytes Percent Auto 6.2 2-11 % Eosinophils Percent Auto 2.2 0-4 % Basophils Percent Auto 1.0 0-2 % NRBC Pct Auto 0.0 0.0-0.2 /100WBC Neutrophils Absolute Auto 9.8 2.0-8.3 x10*3/u L Imm Gran Abs Auto 0.05 0.00-0.03 X10*3/uL Lymphocytes Absolute Auto 2.3 1.2-4.9 X10*3/u L Monocytes Absolute Auto 0.8 0.1-1.2 X10*3/uL Eosinophils Absolute Auto 0.3 0.0-0.4 X10*3/u L Basophils Absolute Auto 0.1 0.0-0.2 X10*3/uL NRBC Abs Auto 0.000 0.0-0.012 X10*3/uL Comprehensive [place]. Panel Fa st Reviewed date:04/05/2025 05:38:53 PM Interpretation: Performing Lab:[address] [phone] Notes/Report: Sodium 141 135-145 mmol/L Potassium 3.7 3.3-5.1 mmol/L Chloride 107 96-108 mmol/L Carbon Dioxide 26 22-29 mmol/L Anion Gap 12 12-20 Blood Urea Nitrogen 23 9-16 mg/dL Creatinine 0.89 0.5-1.4 mg/dL Estimated Glomerular Filt Rate > 60 Chronic Kidney Disease: Estimated GFR < 60 mL/min/1.73m2 Severe Kidney Disease: Estimated GFR < 15 mL/min/1.73m2 Glucose Fasting 88 60-99 mg/dL Calcium 9.0 8.4-10.2 mg/dL Bilirubin Total 0.3 0.0-1.0 mg/dL Aspartate Amino Transferase 35 5-37 U/L Alanine Aminotransferase 15 0-40 U/L Total Protein 7.4 6.5-8.0 g/dL Albumin Level 4.3 3.5-5.0 g/dL Alkaline Phosphatase 57 39-117 U/L Lipid Panel Reviewed date:04/05/2025 05:38:37 PM Interpretation: Performing Lab:[address] [phone] Notes/Report: Triglycerides 98 <150 mg/dL Desirable Triglyceride: less than 150 mg/dL Borderline High Triglyceride 150-199 mg/dL High Triglyceride: 200-499 mg/dL Very High Triglyceride: greater than or equal to 5OO mg/dL Cholesterol 274 <200 mg/dL Desirable Cholesterol: less than 200 mg/dL Borderline High Cholesterol: 200-239 mg/dL High Cholesterol: greater than 239 mg/dL LDL Cholesterol Calculated 192 <100 mg/dL Desirable LDL: less than 100 mg/dL Near Optimal/Above Optimal LDL: 110-129 mg/dL Borderline High LDL: 130-159 mg/dL High LDL: 160-189 mg/dL Very High LDL: greater than or equal to 190 mg/dL HDL Cholesterol 63 >40 mg/dL Desirable HDL: greater than 40 mg/dL Note: This HDL assay may give artificially low results in patients with liver disease. PSA,Total (Free>4and<10) Reviewed date:04/04/2025 04:52:33 PM Interpretation: Performing Lab:[address] [phone] Notes/Report: PSA,Total (Free>4and<10) 0.38 0.00-4.00 ng/mL A Free PSA was not [...] (CMIA) UA ClnCatch+Micro w/rflx Cul t Reviewed date:04/04/2025 04:49:10 PM Interpretation: Performing Lab:[facility], [address] [place] [phone] Notes/Report: Urine, Clean Catch Color Urine Dark Yellow Appearance Urine Clear PH 5.5 5.0-9.0 Glucose Urine UA Negative Negative mg/dL Urine Blood Negative Negative Specific [place] - Urine >= 1.030 1.005-1.025 Urine Protein Trace Neg-Trace mg/dL Urine Ketones Trace Negative mg/dL Nitrite Urine Negative Negative Leukocyte Esterase Urine Negative Negative RBC Urine 0-2 0-2 /HPF WBC Urine 0-5 0-5 /HPF Squamous Epithelial Cell Urine 0-2 0-2 /HPF Bacteria Urine None Seen None Seen Hyaline Casts Urine 0-2 0-2 /LPF REASON FOR VISIT FASTING LABS Encounters Encounter Location Date Provider Diagnosis Terrell Lorenz MD [address] [place], [place] [phone] 04/04/2025 Terrell Lorenz Blood tests for routine general physical examination Z00.00 ; Pure hypercholesterolemia , unspecified E78.00 and Leukocytosis, unspecified type D72.829 Assessments Encounter Date Diagnosis (ICD Code) Assessment Notes Treatment Notes Treatment Clinical Notes Section Notes 04/04/2025 Blood tests for routine general physical examination (ICD-10 - Z00.00) 04/04/2025 Pure hypercholesterol emia, unspecified (ICD-10 - E78.00) 04/04/2025 Leukocytosis, unspecified type (ICD-10 - D72.829) Plan Of Treatment No Information Progress Notes * KOKIAmrik LOZADADOB: 5 (50 yo M)Acc No.[id number]:04/04/2025 Progress Note Patient: Amrik HIGGINS Provider: Enrico Lorenz MD :1975 A ge:49 Y S ex:Male Date:04/04/2025 Address:[address] [place] [phone] Subjective: * Chief Complaints: * 1 . FASTING LABS. * Medical History: Objective: * Vitals: Assessment: * Assessment: 1. B lood tests for routine general physical examination - Z00.00 (Primary) 2 .?Pure hypercholesterolemia, unspecified - E78.00 3 . L eukocytosis, unspecified type - D72.829 Plan: * Treatment: 2. P ure hypercholesterolemia, unspecified L AB: Complete Blood Count Auto Diff (Collection Date & Time - 04/04/2025 07:30 AM) L AB: Comprehensive [place]. Panel Fast (Collection Date & Time - 04/04/2025 07:30 AM) L AB: Lipid Panel (Collection Date & Time - 04/04/2025 07:30 AM) L AB: PSA,Total (Free>4and<10) (Collection Date & Time - 04/04/2025 07:30 AM) L AB: UA ClnCatch+Micro w/rflx Cult (Collection Date & Time - 04/04/2025 07:30 AM) 3. L eukocytosis, unspecified type L AB: Complete Blood Count Auto Diff (Collection Date & Time - 04/04/2025 07:30 AM) L AB: Comprehensive [place]. Panel Fast (Collection Date & Time - 04/04/2025 07:30 AM) L AB: Lipid Panel (Collection Date & Time - 04/04/2025 07:30 AM) L AB: PSA,Total (Free>4and<10) (Collection Date & Time - 04/04/2025 07:30 AM) L AB: UA ClnCatch+Micro w/rflx Cult (Collection Date & Time - 04/04/2025 07:30 AM) * Procedure Codes: 3 6415 VENIPUNCT, ROUTINE* * * The named appointment provid er may or may not be the originator of this progress note, and it is not deemed complete until electronically signed by the appointment provider. Sign off status: Pending * Provider: Enrico Lorenz MD Date: 0 04/04/2025 Generated for Jorge calixto/Isai/Fridaitting on: 1 11:19 AM EDT
--- OUTSIDE RECORDS SUMMARY | 2025-04-20 13:00 | XMS_ITS ---
Author Organization Terrell Lorenz MD Address [address] [place], [place] [phone] Care Team Providers Care Pulp Grinder Feeder Name Role Phone Terrell Lorenz Primary Care Provider Allergies No Known Allergies Medications Medication SIG (Take, Route, Frequency, Duration) Notes Start Date End Date Status Ibuprofen 800 MG take 1 tablet by amie th three times a day with food or milk as needed for 30 days Orally Three times a day for 90 days Active Levothyroxine Sodium 50 MCG 1 tablet in the morning on an empty stomach Orally Once a day for 30 day(s) Active Simvastatin 20 MG 1 tablet in the evening Orally Once a day for 30 day(s) Active Tadalafil 20 MG 1/2 tablet as needed Orally Once a day as needed for 30 day(s) 01/06/2023 Not-Taking Chantix Continuing Month Benji 1 MG as directed Orally Not-Takin g Lisinopril 10 MG 1 tablet Orally Once a day for 30 day(s) Active Social History Tobacco Use: Social History Observation [...] Stopped drinking 3 years ago Stopped drinking 7-15-24 Encounters Encounter Location Date Provider Diagnosis Terrell Lorenz MD [address] [place] [address] Drive [address] [place], [place] [phone] 04/20/2025 Terrell Lorenz Annual physical exam Z00.00 Assessments Encounter Date Diagnosis (ICD Code) Assessment Notes Treatment Notes Treatment Clinical Notes Section Notes 04/20/2025 Annual physical exam (ICD-10 - Z00.00) Plan Of Treatment No Information Progress Notes * Amrik WILSONDOB: 5 (50 yo M)Acc No.[id number]:04/20/2025 Progress Notes Patient: Amrik HIGGINS Provider: Enrico Lorenz MD :1975 A ge:49 Y S ex:Male Date:04/20/2025 Address:[address] [place], [place] [address], [id number] Subjective: * Chief Complaints: * * HPI: D epression Screening: PHQ-9 L [...] oes the patient have a vision impairment? N o, D oes the patient have a cognition [...] N one. S ymptom(s): patient is a 49 yo male here for annual visit ith review of recent labs and follow up of chronic issues. * Medical History: W as [facility] last year for black out from etoh. no alcohol in 6 months, Colonoscopy 2021 repeat in 5 years due to bad prep. * Family History: F ather: alive 72 [...] oints 0 , I nterpretation N egative. M iscellaneous: C affeine: yes, frequency:, 1-2 cups per day. Children: yes. Exercise: no. Home smoke detector use: no. Housing: owning. Living with: spouse, family. Marital status: . Pets: none, 3 dogs 1 guinea pig. Travel outside of the [place]: no. S topped drinking 3 years ago Stopped drinking 06-13-24. * Medications: T aking Levothyroxine Sodium 50 [...] Allergies: N .K.D.A. Objective: * Vitals: Assessment: * Assessment: 1. A nnual physical exam - Z00.00 (Primary) Plan: * Treatment: * Preventive Medicine: Counseling: C are goal follow-up plan: C ounseling for abnormal BMI provided?Yes, A quinn Normal BMI Follow-up G iving encouragement to exercise. * * The named appointment provid er may or may not be the originator of this progress note, and it is not deemed complete until electronically signed by the appointment provider. Sign off status: Pending * Provider: Enrico Lorenz MD Date: 0 04/20/2025 Generated for Jorge calixto/Isai/Erica on: 1 11:19 AM EDT History and Physical Notes * HPI (History of Present Illness) Category Sub-Category Detail Notes Category Not es Symptom(s) patient is a 49 yo male here for annual visit ith review of recent labs and follow up of chronic issues. Depression Screening PHQ-9 Little inte rest or [...] the patient have a vision impairmen t?: No Does the patient have a cognition impair ment?: No
--- OUTSIDE RECORDS SUMMARY | 2025-09-22 06:45 | XMS_ITS ---
Author Organization Terrell Lorenz MD Address [address] [place], [place] [phone] Care Team Providers Care Metal Fabricating Supervisor Name Role Phone Terrell Lorenz Primary Care Provider Allergies No Known Allergies Reason For Referral Reason TOE PAIN, LEFT Diagnosis 1 Toe pain, left (M79. 675) Referral Organization Terrell Lorenz MD Referring Provider First Name Terrell Referring Provider Last Name Kelechi Referring Provider Speciality Internal M edicine Referred Provider CHARLI RHODES Referred Provider Specialty Podiatry General Notes [facility] 09/22/2025 11:54:10 AM >REFERRAL FAXED TO [facility] Referral Priority Routine Referral Appointment Date 09/27/2025 REASON FOR VISIT [facility] paper work, has not taken all his meds x 6 months, check left little toenail coming off after his foot hit the couch 09-21-25 Medications Medication SIG (Take, Route, Frequency, Duration) Notes Start Date End Date Status Chantix Continuing Month Benji 1 MG as directed Orally Not-Takin g Tadalafil 20 MG 1/2 tablet as needed Orally Once a day as needed for 30 day(s) 01/06/2023 Not-Taking Ibuprofen 800 MG take 1 tablet by amie three times a day with food or milk as needed for 30 days Orally Three times a day for 90 days Active Lisinopril 10 MG 1 tablet Orally Once a day for 30 day(s) Not-Taking Simvastatin 20 MG 1 tablet in the evening Orally Once a day for 30 day(s) Not-Taking Levothyroxine Sodium 50 MCG 1 tablet in the morning on an empty stomach Orally Once a day for 30 day(s) Not-Taking Social History Tobacco Use: Social History [...] drinking 3 years ago Stopped drinking 06-13-24 States last drink was 02-21-25 going bto AA weekly Problems Problem Type SNOMED Code ICD Code Onset Dates Problem Status W/U Status Risk Notes Problem Alcohol abuse (41629365) Alcohol abuse (F10.10) Active confirmed Vital Signs Blood pressure systolic 122 mm Hg 09/22/20 25 Blood pressure diastolic 84 mm Hg 025 Height 69 in 09/22/2025 Weight 184 lbs 09/22/2025 BMI 27.17 kg/m2 09/22/2025 weight is down 25 pounds sin 09-30-24 Encounters Encounter Location Date Provider Diagnosis Terrell Lorenz MD [address] [place] [address] [place] [phone] 09/22/2025 Terrell Lorenz Toe pain, left M79.675 and Alcohol abuse F10.10 Assessments Encounter Date Diagnosis (ICD Code) Assessment Notes Treatment Notes Treatment Clinical Notes Section Notes 09/22/2025 Toe pain, left (ICD-10 - M79.675) refer him to podiatry/REFERR AL MADE AND FAXED TO [facility] 09/22/2025 Alcohol abuse (ICD-10 - F10.10) has just been in forced rehab. has a marijuana medical card and smokes daily. here to get paper work filled out stating that he was in rehab in order to get paid for the time he was therre. reades a note from them saying he took part 09/22/2025 Other Total time spent on the date of the encounter is 35 minutes including both face to face time spent and time spent reviewing documentation, and counseling the patient. Plan Of Treatment Treatment Notes Assessment Notes Toe pain, left refer him to podiatr y/REFERRAL MADE AND FAXED TO [facility] Alcohol abuse has just been in for [facility] rehab. has a marijuana medical card and smokes daily. here to get paper work filled out stating that he was in rehab in order to get paid for the time he was therre. reades a note from them saying he took part Other Total time spent on the date of the encounter is 35 minutes including both face to face time spent and time spent reviewing documentation, and counseling the patient. Referrals Referral Date Details 09/22/2025 09/22/2025, TOE PAIN , LEFT, EDISON CARMELO Progress Notes * KOKI AmrikDOB: 5 (50 yo M)Acc No.[id number]:09/22/2025 Progress Notes Patient: Amrik HIGGINS Provider: Enrico Lorenz MD :1975 A ge:50 Y S ex:Male Date:09/22/2025 Address:[address] [place] [id number] Subjective: * Chief Complaints: * 1 . [facility] paper work. 2. Has not taken all his meds x 6 months. 3. Check left little toenail coming off after his foot hit the couch 09-21-25. * HPI: S ymptom(s): patient is a 50 yo male here for follow up visit, overdue for annual visit, requesting completion of [place] paperwork/ 08/27 too 2 weeks ago admitted to rehab. court ordered to [facility] for alcohol 08/27 to 09/10. * ROS: G eneral/Constitutional: Denies C hills. D enies F atigue. D enies F ever. D enies H eadache. E NT: Denies S ore throat. R espiratory: Denies C ough. D enies S hortness of breath at rest. D enies S hortness of breath with exertion. G astrointestinal: Denies D iarrhea. D enies N ausea. * Medical History: W as [facility] last year for black out from etoh. no alcohol in 6 months, Colonoscopy 2021 repeat in 5 years due to bad prep. * Social History: T obacco Use: T [...] topped drinking 3 years ago Stopped drinking 06-13- States last drink was 02-21- going bto AA weekly. * Medications: T aking Ibuprofen 800 MG Tablet take 1 tablet by mouth three times a day with food or milk as needed for 30 days Orally Three times a day , Not-Taking/PRN Levothyroxine Sodium 50 MCG Tablet 1 tablet in the morning on an empty stomach Orally Once a day , Not-Taking/PRN Simvastatin 20 MG Tablet 1 tablet in the evening Orally Once a day , Not-Taking/PRN Lisinopril 10 MG Tablet 1 tablet Orally Once a day , Not- Taking/PRN Tadalafil 20 MG Tablet 1/2 tablet as needed Orally Once a day as needed , Not-Taking/PRN Chantix Continuing Month Benji 1 MG Tablet as directed Orally , Medication List reviewed and reconciled with the patient * Allergies: N .K.D.A. Objective: * Vitals: H t: 69, Wt: 184, BMI:27.17, BP:122/84, Wt-k.46. weight is down 25 pounds since 09-30-24. * Examination: G eneral Examination: GENERAL APPEARANCE: a lert, well hydrated, in no distress.? SKIN: a bnormal has a skin tear on fifth toe yesterday. has a bandage on it. will send him to podiatry. HEART: n o murmurs, rubs, gallops, regular rate and rhythm.? LUNGS: n o wheezes, rales, rhonchi, good air movement, clear to auscultation bilaterally. Assessment: * Assessment: 1. T oe pain, left - M79.675 (Primary) 2 . A lcohol abuse - F10.10 ? Plan: * Treatment: 2. A lcohol abuse Notes: has just been in forced rehab. has a marijuana medical card and smokes daily. here to get paper work filled out stating that he was in rehab in order to get paid for the time he was therre. reades a note from them saying he took part 3. O thers Notes: Total time spent on the date of the encounter is 35 minutes including both face to face time spent and time spent reviewing documentation, and counseling the patient. * * The named appointment provid er may or may not be the originator of this progress note, and it is not deemed complete until electronically signed by the appointment provider. Sign off status: Pending * Provider: Enrico Lorenz MD Date: Generated for Joreg calixto/Isai/Rafitaransmitting on: 11:18 AM EDT History and Physical Notes * HPI (History of Present Illness) Category Sub-Category Detail Notes Category Not es Symptom(s) patient is a 50 yo male here for follow up visit, overdue for annual visit, requesting completion of FMLA paperwork/ 08/27 too 2 weeks ago admitted to rehab. court ordered to [facility] for alcohol 08/27 to 09/10 Examination Category Sub-Category Detail Notes Category Not es General Examination GENERAL APPEARANCE: alert, w ell hydrated, in no distress HEART: no murmurs, rubs, ga llops, regular rate and rhythm LUNGS: no wheezes, rales, r honchi, good air movement, clear to auscultation bilaterally SKIN: abnormal has a skin tear on fifth toe yesterday. has a bandage on it. will send him to podiatry Consultation Request Notes Referral Date Referring Provider Referred Provider Not es 09/22/2025 Terrell Lorenz CHINENY E TOE PAIN, LEFT
--- OUTSIDE RECORDS SUMMARY | 2025-09-27 11:18 | XMS_ITS | Patient Health Record ---
Author Organization Terrell Lorenz MD Address [address] [place], [place] [phone] Care Team Providers Care Vp Construction Name Role Phone Terrell Lorenz Primary Care Provider Allergies No Known Allergies Results Component Value Reference Range Notes Complete Blood Count Auto Di ff Reviewed date:04/04/2025 12:12:11 PM Interpretation: Performing Lab:[facility], [address] [place] [phone] Notes/Report: White Blood Count 13.4 4.8-10.8 X10*3/uL [...] NRBC Abs Auto 0.000 0.0-0.012 X10*3/uL Comprehensive [place]. Panel Fa st Reviewed date:04/05/2025 05:38:53 PM Interpretation: Performing Lab:[facility], [address] [place] [phone] Notes/Report: Sodium 141 135-145 mmol/L Potassium 3.7 [...] Panel Reviewed date:04/05/2025 05:38:37 PM Interpretation: Performing Lab:[address] [phone] Notes/Report: Triglycerides 98 <150 mg/dL Desirable Triglyceride: [...] (Free>4and<10) Reviewed date:04/04/2025 04:52:33 PM Interpretation: Performing Lab:[address] [phone] Notes/Report: PSA,Total (Free>4and<10) 0.38 0.00-4.00 ng/mL A [...] t Reviewed date:04/04/2025 04:49:10 PM Interpretation: Performing Lab:[address] [phone] Notes/Report: Urine, Clean Catch Color Urine Dark Yellow Appearance Urine Clear PH 5.5 5.0-9.0 Glucose Urine UA Negative Negative mg/dL Urine Blood Negative Negative Specific [place] - Urine >= 1.030 1.005-1.025 Urine Protein Trace Neg-Trace mg/dL Urine Ketones Trace Negative mg/dL Nitrite Urine Negative Negative Leukocyte Esterase Urine Negative Negative RBC Urine 0-2 0-2 /HPF WBC Urine 0-5 0-5 /HPF Squamous Epithelial Cell Urine 0-2 0-2 /HPF Bacteria Urine None Seen None Seen Hyaline Casts Urine 0-2 0-2 /LPF Reason For Referral Reason TOE PAIN, LEFT Diagnosis 1 Toe pain, left (M79. 675) Referral Organization Terrell Lorenz MD Referring Provider First Name Terrell Referring Provider Last Name Kelechi Referring Provider Speciality Internal M edicine Referred Provider CHARLI RHODES Referred Provider Specialty Podiatry General Notes Rafael Tea A 09/22/2025 11:54:10 AM >REFERRAL FAXED TO [facility] Referral Priority Routine Referral Appointment Date 09/27/2025 Medications Medication SIG (Take, Route, Frequency, Duration) [...] Once a day for 30 day(s) Not-Taking Immunizations Vaccine Route Administration Date Status Comme [...] Stopped drinking 3 years ago Stopped drinking 1524 Stopped drinking 3 years ago Stopped drinking 06-13-24 Stopped drinking 3 years ago Stopped drinking 24 States last drink was 02-21-25 going bto AA weekly Problems Problem Type SNOMED Code ICD Code Onset Dates Problem Status W/U Status Risk Notes Problem 17134966 Rectal bleeding (K62.5) Active confirmed Problem 330683259380507 Erectile dysfunction due to arterial insufficiency (N52.01) Active confirmed Problem 55563505 Smoker (F17.200) Active confirmed Problem Alcohol abuse (55876310) Alcohol abuse (F10.10) Active confirmed Problem 994752011 Cervical disc disease (M50.90) Active confirmed Problem 976971156 Leukocytosis, unspecified type (D72.829) Active confirmed Problem 655512773 Pure hypercholesterol emia, unspecified (E78.00) Active confirmed Problem 254803338 History of alcohol abuse (F10.11) Active confirmed Vital Signs Blood pressure diastolic 84 mm Hg 09/22/2025 alannah ght is down 25 pounds since 09-30-24 Height 69 in 09/22/2025 weight is down 25 pounds since 09-30-24 Blood pressure systolic 122 mm Hg 09/22/2025 weig ht is down 25 pounds since 09-30-24 Weight 184 lbs 09/22/2025 weight is down 25 pounds since 09-30-24 BMI 27.17 kg/m2 09/22/2025 weight is down 25 pounds since 09-30-24 Encounters Encounter Location Date Provider Diagnosis Terrell Lorenz MD [address] [place] [id number] 04/04/2025 Terrell Lorenz Blood tests for routine general physical examination Z00.00 ; Pure hypercholesterolemia , unspecified E78.00 and Leukocytosis, unspecified type D72.829 Terrell Lorenz MD [address] [place] [id number] 09/22/2025 Terrell Lorenz Toe pain, left M79.675 and Alcohol abuse F10.10 Terrell Lorenz MD [address] [place] [id number] 09/30/2024 Terrell Lorenz History of alcohol abuse F10.11 Terrell Lorenz MD [address] [place] [id number] 09/30/2024 Terrell Lorenz MD [address] [place] [id number] 12/16/2024 Terrell Lorenz Assessments Encounter Date Diagnosis (ICD Code) Assessment Notes Treatment Notes Treatment Clinical Notes Section Notes 04/04/2025 Blood tests for routine general physical examination (ICD-10 - Z00.00) 09/22/2025 Toe pain, left (ICD-10 - M79.675) refer him to podiatry/REFERRAL MADE AND FAXED TO [facility] 09/22/2025 Alcohol abuse (ICD-10 - F10.10) has just been in forced rehab. has a marijuana medical card and smokes daily. here to get paper work filled out stating that he was in rehab in order to get paid for the time he was therre. reades a note from them saying he took part 09/30/2024 History of alcohol abuse (ICD-10 - F10.11) has been in treatment from may to august. have no records of treatment. apperently fighting with his son and started drinking and then got into his truck. police arrested him on the spot. this will be his 4th offence which could put him in prison. i spoke about staying sober and the [...] 04/04/2025 Leukocytosis, unspecified type (ICD-10 - D72.829) 09/22/2025 Other Total time spen t on the date of the encounter is 35 minutes including both face to face time spent and time spent reviewing documentation, and counseling the patient. Plan Of Treatment Pending Test Test Name Order Date URINALYSIS, COMPLETE 05/03/2021 Insurance Providers Payer Name Payer Address Payer Phone Subscriber Number Group Number Insured Name Patient Relationship to Insured Coverage Start Date Coverage End Date [employer] [address] [place], [place] [phone] [id number] Amrik Wilson Self - patient is the insured 1 [facility] [address] [address] [place] [address] [phone] [id number] Amrik Wilson Self - patient is the insured [facility] [address] [place] [id number] Amrik Wilson Self - patient is the insured Medical (General) History Medical History History ICD Code was in [facility] last year for black ou t from etoh. no alcohol in 6 months colonoscopy 2021 repeat in 5 years due t o bad prep
== END 2025-09-27 08:50 | disposition home or self-care (01) ==
LOC: HO.LNP 08:49
PROVIDERS: PCP Internal Medicine; Visit Provider Student in an Organized Health Care Education/Training Program
DX: B35.3 Tinea pedis (principal); B35.1 Tinea unguium
CPT/HCPCS: 87101; 87220; 88304; 88312

== ENCOUNTER 2025-11-07 10:34 | Outpatient (AMB) | payer BC, SELFPAY ==
[2025-11-07 10:36] VITALS: BMI 28.1
--- NOTE | 2025-11-07 10:36 | A.OFFVIS_ITS ---
Vital Signs 11/07/25 10:36 Height 5 ft 8 in Weight 185 lb BMI 28.1 Intake Visit Reasons: Left Toe Pain/Go over results offer sooner kristopher Intake Note: Amrik is a 50 year old male who presents to the office today for a follow up for Left Toe Pain. At last visit Clotrimazole-betamethasone ointment was prescribed and a nail biopsy of the left hallux nail was performed. Patient states he is doing well with no further concerns at this time. Allergies bee pollen (BEE STINGS) Allergy (Unknown, Verified 11/07/25 10:42) HIVES HPI HPI Left Toe Pain/Go over results offer sooner kristopher: Details: 50-year-old male with no past medical history returns for fungal infection to his feet. He has been applying clotrimazole ointment to his feet and notices improvement. History: Patient states he noticed it since this past summer. He complains of burning and itchiness to his feet. Also complains of discolored toenails. [facility] Medical History High cholesterol History of alcohol abuse Smoker Surgical History H/O colonoscopy Family History Sister Epilepsy Social History (Updated 07/27/23 @ 10:23 by Kelsey Singleton [facility]) Alcohol intake: former Patient Tobacco Use Status: Current everyday Tobacco user Cigarettes Per Day: 10 Substance Use Type: Marijuana Current occupational status: employed Current occupation: [email or web address] Review of Systems Const All systems reviewed & are unremarkable except as noted in HPI and below Physical Exam Vital Signs: BMI result Body Mass Index 28.1 Extrem Other: *Bilateral Lower Extremity Focused Exam Vascular: DP/PT 2/4, CFT less than 3 seconds to all digits, temperature gradient warm to cool. No pedal edema. Derm: Interdigital macerations with openings to the 1st 3rd and 4th interspace left foot, improving. Interdigital macerations right foot 1 through 4, improving No erythema or drainage. Wood's lamp negative for fluorescence. Thickened elongated dystrophic discolored toenails x 10 with subungual debris. Neuro: protective sensation grossly intact to bilateral lower extremities. MSK: No pain on palpation of the interspace fissures. Results Reviewed Results Reviewed: Fungus Cult Hair/Skin/Nail Final 10/28/25-6431 Fungus present on culture. Does not resemble a dermatophyte. Multiple morphologic types. Assessment & Plan Assessment & Plan (1) Tinea unguium: Code(s): B35.1 - Tinea unguium Category: Medical Plan: * Nail culture left hallux nail reviewed. * Discussed treatment options including topical treatment versus oral antifungal medications. * Patient was counseled on the importance of anti-fungal foot hygiene, including daily washing and thorough drying of feet, regular changing of socks, and use of breathable footwear. Recommended antifungal sprays shoes. Education provided on keeping toenails trimmed and clean to reduce risk of fungal infections. Preventive strategies discussed to minimize recurrence of fungal infections. * Rx Ciclopirox * F/U 2 months (2) Tinea pedis: Code(s): B35.3 - Tinea pedis Category: Medical Qualifiers: Laterality: bilateral Qualified Code(s): B35.3 - Tinea pedis Plan: * Continue Clotrimazole-betamethasone ointment * Instructed patient to apply topical anti-fungal spray in his shoes. * Eduated on anti-fungal hygeine. Medications: New ciclopirox 8% Apply to fungal toenails daily. Remove build-up at the end of the week. 1 appl topical BEDTIME 6.6 mL 3RF fungal toe nails 4 months B35.1 - Tinea unguium Coding Level of Care Code Est Pt Level 3 (35632) Diagnoses Tinea unguium B35.1 Tinea pedis of both feet B35.3 Laterality: bilateral Time Spent (min) 30
== END 2025-11-07 11:02 | disposition home or self-care (01) ==
LOC: HO.HPODS 10:35
PROVIDERS: PCP Internal Medicine; Visit Provider Student in an Organized Health Care Education/Training Program
DX: B35.1 Tinea unguium (principal); B35.3 Tinea pedis
CPT/HCPCS: 99213